=== PATIENT | male | born 1935 | race Caucasian/White ===

== ENCOUNTER 2016-11-27 08:18 | Inpatient (IN) | payer OTHER ==
--- NOTE | 2016-11-27 08:53 | PDOC ---
History of Present Illness - General History Source: Patient, Old Records Exam Limitations: No Limitations - History of Present Illness Initial Comments: 11/27/16 09:03 The patient is an 81-year-old man, from home, with a significant past medical history of hypertension, hypercholesterolemia, coronary artery disease (on Coumadin), diabetes mellitus and end-stage renal disease (on hemodialysis q. M/W /F) who presents to the emergency department via walk in for further evaluation of abdominal pain for the past two weeks. No trauma, strenuous activity. Patient states that his symptoms started approximately 2 weeks ago as gassy sensations. Patient took an over the counter medication for gas relief, which helped immediately with his symptoms. Approximately 1 week later, he started to experience intermittent left sided abdominal pain. He describes his pain as a pressure sensation that shoots through his back. He notes that his pain is exacerbated when eating, bending forward and lifting his left leg. He states that his pain has remained constant since yesterday afternoon, at approximately 12:00. He denies taking any pain medications. He has never experienced similar pain in the past. Patient presets to the ED, as his symptoms have remained constant. He denies chest pain, cough, shortness of breath, headache He denies vomiting, diarrhea,changes in bowel habits, dysuria, hematuria, urinary frequency/urgency, flank pain, Allergies: Penicillin. Vancomycin. Past Surgical History: Bilateral knee arthroscopies. Spinal surgeries x4. Right arm fistula placement. Social History: Never smoked. No EtOH and recreational drug use. Primary Care Physician: Dr. Jose Kumari <Gisele Davis - Last Filed: 11/27/16 14:49> - General History Source: Patient Exam Limitations: No Limitations <Karlie Mckinney - Last Filed: 11/27/16 14:58> - General Chief Complaint: Pain Stated Complaint: LT SIDE/ABD PAIN Time Seen by Provider: 11/27/16 08:41 Past History <Gisele Davis - Last Filed: 11/27/16 14:49> - Past Medical History Anemia: No Asthma: No Cancer: No Cardiac Disorders: Yes (on coumadin) CVA: No COPD: No CHF: No Dementia: No Diabetes: Yes Dialysis: Yes (m-w-f rt arm fistula) GI Disorders: No Disorders: No HTN: Yes Hypercholesterolemia: Yes Liver Disease: No Seizures: No Thyroid Disease: No - Surgical History Abdominal Surgery: No Appendectomy: No Cardiac Surgery: No Cholecystectomy: No Lung Surgery: No Neurologic Surgery: Yes (4 SPINAL SURGERIES, bilat knee sx) Orthopedic Surgery: Yes (RAJAT KNEE ARTHROSCOPIES) - Psycho/Social/Smoking Cessation Hx Anxiety: No Suicidal Ideation: No Smoking History: Never smoked Have you smoked in the past 12 months: No Information on smoking cessation initiated: No Hx Alcohol Use: No Drug/Substance Use Hx: No Substance Use Type: None Hx Substance Use Treatment: No <Karlie Mckinney - Last Filed: 11/27/16 14:58> - Past Medical History Allergies/Adverse Reactions: Allergies Allergy/AdvReac Type Severity Reaction Status Date / Time Penicillins Allergy Verified 11/27/16 08:19 vancomycin Allergy Verified 11/27/16 08:19 Home Medications: Ambulatory Orders Furosemide [Lasix -] 80 mg PO HS 03/15/15 Atorvastatin Ca [Lipitor] 10 mg PO HS 06/01/15 Calcium Acetate 6 tab PO DAILY 11/27/16 Sevelamer Carbonate [Renvela] 800 mg PO DAILY 11/27/16 Warfarin Sodium 4.5 mg PO DAILY 11/27/16 Review of Systems - Review of Systems Able to Perform ROS?: Yes Comments:: 11/27/16 09:04 GENERAL/CONSTITUTIONAL: No: fever, chills, weakness, loss of appetite. HEAD, EYES, EARS, NOSE AND THROAT: No: change in vision, ear pain, discharge, sore throat, throat swelling. CARDIOVASCULAR: No: chest pain, lightheadedness, palpitations, syncope RESPIRATORY: No: cough, shortness of breath, wheezing, hemoptysis, stridor. GASTROINTESTINAL: Yes: Abdominal Pain. Nausea. No: vomiting, abdominal cramping , diarrhea, rectal bleeding, constipation. GENITOURINARY: No: dysuria, hematuria, frequency, urgency, flank pain. MUSCULOSKELETAL: No: back pain, neck pain, joint pain, muscle swelling or pain SKIN AND BREASTS: No: lesions, pallor, rash or easy bruising. NEUROLOGIC: No: headache, vertigo, paresthesias, weakness ENDOCRINE: No: unexplained weight gain or loss HEMATOLOGIC/LYMPHATIC: No: anemia, easy bleeding, swelling nodes <Gisele Davis - Last Filed: 11/27/16 14:49> *Physical Exam - Vital Signs Last Vital Signs Temp Pulse Resp BP Pulse Ox 98.2 F 64 18 148/81 97 11/27/16 08:19 11/27/16 08:19 11/27/16 08:19 11/27/16 08:19 11/27/16 08:19 - Physical Exam Comments: 11/27/16 09:04 GENERAL: The patient is in no acute distress. HEAD: Normal with no signs of trauma. EYES: PERRLA, EOMI, sclera anicteric, conjunctiva clear. ENT: Ears normal, nares patent, oropharynx clear without exudates. Moist mucous membranes. NECK: Normal range of motion, supple without lymphadenopathy, JVD, or masses. LUNGS: Breath sounds equal, clear to auscultation bilaterally. No wheezes, and no crackles. HEART: Sinus arrythmia with a 3/6 systolic ejection murmur best heard at the precordia. ABDOMEN: Soft, severe left lower quadrant tenderness to palpation. Hyperactive bowel sounds. No guarding, no rebound. EXTREMITIES: Normal range of motion, no edema. No clubbing or cyanosis. No erythema, or tenderness. NEUROLOGICAL: Cranial nerves II through XII grossly intact. Normal speech. No focal neurological deficits. MUSCULOSKELETAL: Back nontender to palpation, no CVA tenderness SKIN: Warm, Dry, normal turgor, no rashes or lesions noted. <Gisele Davis - Last Filed: 11/27/16 14:49> - Vital Signs Last Vital Signs Temp Pulse Resp BP Pulse Ox 98.2 F 64 18 148/81 97 11/27/16 08:19 11/27/16 08:19 11/27/16 08:19 11/27/16 08:19 11/27/16 08:19 <Karlie Mckinney - Last Filed: 11/27/16 14:58> ED Treatment Course - LABORATORY CBC & Chemistry Diagram: 11/27/16 09:10 11/27/16 09:10 - RADIOLOGY Radiograph Interpretation: 11/27/16 13:04 EXAM: CT/ABDOMEN PELVIS CT W/O CONTR HISTORY PROVIDED Interpreted by Dr. Mario Alberto Prince IMPRESSION: Sequential axial images were obtained from the domes of the diaphragm through the symphysis pubis following the administration of oral contrast material. The lung bases are clear. There is marked thickening and irregularity of the proximal sigmoid colon with inflammatory changes in the adjacent mesenteric fat. This is consistent with acute diverticulitis. The colon has a bulky appearance in this location and the possibility of a developing abscess should be considered. Clinical correlation and follow-up is recommended. Is no evidence of bowel obstruction related to this process. The liver, spleen, pancreas and adrenal glands demonstrate no significant abnormalities. The kidneys are atrophic with no evidence of hydronephrosis or acute pathology. There is no evidence of intra-abdominal or retroperitoneal lymphadenopathy or fluid collections. There is no evidence of pneumoperitoneum, bowel obstruction or intra-abdominal abscess. Examination of the pelvis demonstrates no evidence of pelvic masses, fluid collections or lymphadenopathy. The prostate gland is enlarged measuring 4.9 x 4.1 x 4.6 cm. There is no evidence of acute bony abnormalities. The patient is S/P laminectomy and posterior fusion from L3 to S1. <Gisele Davis - Last Filed: 11/27/16 14:49> - LABORATORY CBC & Chemistry Diagram: 11/27/16 09:10 11/27/16 09:10 <Karlie Mckinney - Last Filed: 11/27/16 14:58> Medical Decision Making - Medical Decision Making 11/27/16 13:[address] Green 11/27/16 14:[address] Green. States that Hospitalist is covering for her until tomorrow. 11/27/16 14:49 MicroBlogged Hospitalist <Gisele Davis - Last Filed: 11/27/16 14:49> - Medical Decision Making 11/27/16 08:53 A portion of this note was documented by scribe services under my direction. I have reviewed the details of the note, within reason, and agree with the documentation with the following case summary and management plan written by me. Nursing documentation reviewed and incorporated into medical decision making This patient is an 81-year-old male with a history of end-stage renal disease on dialysis Mondays, Wednesdays, Fridays Patient presents emergency department with one day of severe LLQ pain and tenderness Symptoms actually began 1 or 2 weeks ago, initially described as gas pain Now he has crampy sharp pain rated 9/10, worse with palpation of the LLQ, flexion of the left hip DD: diverticulitis, colitis, abscess, kidney stone Will do: Labs CT abd and pelvis UA Will give Fentanyl for pain 11/27/16 10:29 Laboratory Tests 04/11/16 11/27/16 11/27/16 05:45 09:10 09:10 WBC 5.5 12.0 H D Hgb 10.7 L 12.7 D Hct 32.8 L 38.0 D Plt Count 122 L 206 D Sodium 135 L Potassium 4.3 Chloride 94 L Carbon Dioxide 27 BUN 81 H D Creatinine 8.1 H* D Random Glucose [address] of the abdomen and pelvis Will re assess 11/27/16 13:11 CT of the abdomen and pelvis: Thickening and irregularity of the proximal sigmoid colon with inflammatory changes in the adjacent mesenteric fat consistent with acute diverticulitis. The has a bulky appearance in this location and the possibility of a developing abscess should be considered. Patient written for Levaquin, and Flagyl. Call placed to Dr. Dunn who covers Dr. Kumari in the hospital 11/27/16 14:[address] Dunn She states that the Hospitalists will cover her will admit to their service 11/27/16 14:[address] Spaulding Will admit to Hospitalist Pt seen in the ER by Dr. Go <Karlie Mckinney - Last Filed: 11/27/16 14:58> *DC/Admit/Observation/Transfer - Attestations Scribe Attestion: 11/27/16 09:05 Documentation prepared by Gisele Davis, acting as medical receptionist for Karlie Mckinney MD. <Gisele Davis - Last Filed: 11/27/16 14:49> - Discharge Dispostion Admit: Yes <Karlie Mckinney - Last Filed: 11/27/16 14:58> Diagnosis at time of Disposition: Diverticulitis of large intestine Qualifiers: Diverticulitis bleeding: without bleeding Diverticulitis complication: with abscess Qualified Code(s): K57.20 - Diverticulitis of large intestine with perforation and abscess without bleeding - Discharge Dispostion Condition at time of disposition: Stable - Referrals Referrals: Jose Kumari MD [Primary Care Provider] -
[2016-11-27 09:35] LABS: BASOPHIL 0.6 % (0-2.0); EOSINOPHIL 0.8 % (0-4.5); MCH 30.5 pg (25.7-33.7); MCHC 33.4 g/dl (32.0-35.9); MEAN CELL VOLUME 91.5 fl (80-96); NEUTROPHILS 84.6 % (42.8-82.8); PLATELET COUNT 206 K/MM3 (134-434); RDW 15.2 % (11.9-15.9)
[2016-11-27 09:38] LABS: ALBUMIN 3.9 g/dl (3.4-5.0); BILIRUBIN,TOTAL 0.6 mg/dL (0.2-1.0); CALCIUM 9.6 mg/dL (8.5-10.1); TOT PROT 7.2 g/dl (6.4-8.2)
[2016-11-27 09:43] LABS: COCKROFT - GAULT 13.29
[2016-11-27 09:45] LABS: CREATININE 8.1 mg/dL (0.7-1.3)
[2016-11-27] MEDS ORDERED: METRONIDAZOLE 500 MG PREMIXED 100 ML IVPB ONE ×2 (13:10→13:38)
[2016-11-27] MEDS ORDERED: LEVOFLOXACIN 500 MG IVPB 100 ML IVPB ONE ×2 (13:10→13:38)
--- NOTE | 2016-11-27 15:56 | CON.NEP ---
Consult Consult Specialty:: nephrology Reason for Consultation:: esrd - History of Present Illness Chief Complaint: abdominal pain History of Present Illness: The patient is an 81-year-old man, from home, with a significant past medical history of hypertension, hypercholesterolemia, coronary artery disease (on Coumadin), diabetes mellitus and end-stage renal disease (on hemodialysis q. M/W /F) who presents to the emergency department via walk in for further evaluation of abdominal pain for the past two weeks. Today is his regular dialysis day. he has not been eating and had nausea yesterday. Says his pain is better since he has been in the emergency dept. - History Source History Provided By: Patient, Medical Record Limitations to Obtaining History: No Limitations - Past Medical History Cardio/Vascular: Yes: Aortic Stenosis, CAD, CHF, HTN, Hyperlipdemia Renal/: Yes: Renal Failure, Hemodialysis - Past Surgical History Past Surgical History: Yes: AV Fistula/Graft - Alcohol/Substance Use Hx Alcohol Use: No - Smoking History Smoking history: Never smoked Have you smoked in the past 12 months: No - Social History Usual Living Arrangement: With Spouse ADL: Independent History of Recent Travel: No Home Medications - Allergies Allergies/Adverse Reactions: Allergies Allergy/AdvReac Type Severity Reaction Status Date / Time Penicillins Allergy Verified 11/27/16 08:19 vancomycin Allergy Verified 11/27/16 08:19 - Home Medications Home Medications: Ambulatory Orders Furosemide [Lasix -] 80 mg PO HS 03/15/15 Atorvastatin Ca [Lipitor] 10 mg PO HS 06/01/15 Calcium Acetate 6 tab PO DAILY 11/27/16 Sevelamer Carbonate [Renvela] 800 mg PO DAILY 11/27/16 Warfarin Sodium 4.5 mg PO DAILY 11/27/16 Review of Systems - Review of Systems Constitutional: reports: Loss of Appetite, Malaise. denies: Fever Eyes: reports: No Symptoms HENT: reports: No Symptoms Neck: reports: No Symptoms Cardiovascular: reports: No Symptoms Respiratory: reports: No Symptoms Gastrointestinal: reports: Abdominal Pain, Nausea. denies: Diarrhea, Vomiting, Vomiting Blood Genitourinary: reports: No Symptoms Breasts: reports: No Symptoms Reported Musculoskeletal: reports: No Symptoms Integumentary: reports: No Symptoms Neurological: reports: No Symptoms Endocrine: reports: No Symptoms Hematology/Lymphatic: reports: No Symptoms Psychiatric: reports: No Symptoms Nephrology Consult - Height Height: 5 ft 8 in - Weight Weight: 285 lb - BMI Body Mass Index (BMI): 43.3 - Lab Results CBC,BMP: CBC, BMP 11/27/16 09:10 11/27/16 09:10 Anion Gap: Anion Gap Anion Gap 14 (8-16) 11/27/16 09:10 - Imaging Cat Scan: Report Reviewed - Physical Examination Vital Signs: Vital Signs Temperature 98.1 F 11/27/16 13:04 Pulse Rate 60 11/27/16 13:04 Respiratory Rate 14 11/27/16 13:04 Blood Pressure 110/67 11/27/16 13:04 O2 Sat by Pulse Oximetry (%) 98 11/27/16 15:36 Constitutional: Yes: Well Nourished, No Distress, Calm Eyes: Yes: Conjunctiva Clear, EOM Intact HENT: Yes: Atraumatic, Normocephalic Neck: Yes: Supple, Trachea Midline Cardiovascular: Yes: Regular Rate and Rhythm Respiratory: Yes: Regular, CTA Bilaterally Gastrointestinal: Yes: Normal Bowel Sounds, Soft Renal/: Yes: WNL Access for Hemodialysis: AV Graft Musculoskeletal: Yes: WNL Extremities: Yes: WNL Edema: No Integumentary: Yes: WNL Wound/Incision: Yes: Clean/Dry, Well Approximated Neurological: Yes: Alert, Oriented Psychiatric: Yes: Alert, Oriented Assessment/Plan IMPRESSION esrd htn diverticulitis previous h/o bacteremia PLAN he has no acute indication for HD will dialyze in am agree with antibiotics GI and surgical evaluation allergies noted MV
--- NOTE | 2016-11-27 16:37 | HP ---
CHIEF COMPLAINT: Stomach pain PCP: Dr. Jose Garcia HISTORY OF PRESENT ILLNESS: Patient is an 81 year old male with a PMHx of HTN, HLD, CAD, DMII, ESRD on Hemodialysis (M/W/F) who presented to for evaluation of severe abdominal pain. Patient reports two weeks ago he started experiencing abdominal bloating and gas , especially when eating. Then two days ago the patient ate lettuce, tomato and a small piece of fish and experienced excruciating left lower quadrant abdominal pain that is throbbing in nature with a severity of 10/10. The pain was exacerbated by food with no relief. Patient then reports last night the pain worsened, which prompted this hospital visit. He reports never having this type of pain before or was ever hospitalized for this type of pain. Patient also reports the abdominal pain is now radiating to his back causing him to have a pressure like pain to his lower back and bilateral legs, which remained constant since then. Patient otherwise denies fever, chills, nausea, vomiting, chest pain, palpitations, shortness of breath, dysuria, hematuria, urinary frequency, diarrhea, constipation. ER course was notable for: (1) CT abdo revealed acute diverticulitis with forming abscess (2)Levaquin and Flagyl given (3) Recent Travel: Denies PAST MEDICAL HISTORY: HTN, HLD, DMII, Chronic diastolic heart failure, CAD on Coumadin, ESRD on dialysis PAST SURGICAL HISTORY: Right forearm AV fistula, Bilateral knee arthroscopies, Cervical and lumbar spine surgeries Social History: Smoking:Denies Alcohol: Denies Drugs: Denies Family History: Non-contributory Allergies Penicillins Allergy (Verified 11/27/16 08:19) vancomycin Allergy (Verified 11/27/16 08:19) HOME MEDICATIONS: Home Medications Medication Instructions Recorded Furosemide [Lasix -] 80 mg PO HS 03/15/15 Atorvastatin Ca [Lipitor] 10 mg PO HS 06/01/15 Calcium Acetate 6 tab PO DAILY 11/27/16 Sevelamer Carbonate [Renvela] 800 mg PO DAILY 11/27/16 Warfarin Sodium 4.5 mg PO DAILY 11/27/16 REVIEW OF SYSTEMS CONSTITUTIONAL: Absent: fever, chills, diaphoresis, generalized weakness, malaise, loss of appetite, weight change HEENT: Absent: rhinorrhea, nasal congestion, throat pain, throat swelling, difficulty swallowing, mouth swelling, ear pain, eye pain, visual changes CARDIOVASCULAR: Absent: chest pain, syncope, palpitations, irregular heart rate, lightheadedness , peripheral edema RESPIRATORY: Absent: cough, shortness of breath, dyspnea with exertion, orthopnea, wheezing, stridor, hemoptysis GASTROINTESTINAL: Abdominal pain, abdominal distension Absent: nausea, vomiting, diarrhea, constipation, melena, hematochezia GENITOURINARY: Absent: dysuria, frequency, urgency, hesitancy, hematuria, flank pain, genital pain MUSCULOSKELETAL: Absent: myalgia, arthralgia, joint swelling, back pain, neck pain SKIN: Absent: rash, itching, pallor HEMATOLOGIC/IMMUNOLOGIC: Absent: easy bleeding, easy bruising, lymphadenopathy, frequent infections ENDOCRINE: Absent: unexplained weight gain, unexplained weight loss, heat intolerance, cold intolerance NEUROLOGIC: Absent: headache, focal weakness or paresthesias, dizziness, unsteady gait, seizure, mental status changes, bladder or bowel incontinence PSYCHIATRIC: Absent: anxiety, depression, suicidal or homicidal ideation, hallucinations. PHYSICAL EXAMINATION Vital Signs - 24 hr 11/27/16 15:36 O2 Sat by Pulse 98 Oximetry (%) GENERAL: Awake, alert, and fully oriented, in no acute distress. HEAD: Normal with no signs of trauma. EYES: Sclera anicteric, conjunctiva clear. EARS, NOSE, THROAT: Oropharynx clear without exudates. Moist mucous membranes. NECK: Normal range of motion, supple without lymphadenopathy, JVD, or masses. LUNGS: Breath sounds equal, clear to auscultation bilaterally. No wheezes, and no crackles. No accessory muscle use. HEART: Regular Rate and Rhythm, 3/6 systolic murmur ABDOMEN: Soft, Obese, moderate left lower quadrant tenderness upon palpation. No rebound tenderness. MUSCULOSKELETAL: Normal range of motion at all joints. No bony deformities or tenderness. No CVA tenderness. UPPER EXTREMITIES: Right arm fistula. No peripheral edema. LOWER EXTREMITIES: No peripheral edema. NEUROLOGICAL: Normal speech. Normal gait. Laboratory Results - last 24 hr 11/27/16 11/27/16 09:10 09:10 WBC 12.0 H D RBC 4.16 Hgb 12.7 D Hct 38.0 D MCV 91.5 MCHC 33.4 RDW 15.2 Plt Count 206 D MPV 8.0 Neutrophils % 84.6 H Lymphocytes % 9.4 D Monocytes % 4.6 Eosinophils % 0.8 Basophils % 0.6 Sodium 135 L Potassium 4.3 Chloride 94 L Carbon Dioxide 27 Anion Gap 14 BUN 81 H D Creatinine 8.1 H* D Creat Clearance w eGFR 6.43 Random Glucose 118 H D Calcium 9.6 D Total Bilirubin 0.6 AST 13 L D ALT 19 Alkaline Phosphatase 118 H D Total Protein 7.2 D Albumin 3.[address] ABDOMEN PELVIS (11/27/16): There is marked thickening and irregularity of the proximal sigmoid colon with inflammatory changes in the adjacent mesenteric fat. This is consistent with acute diverticulitis. The colon has a bulky appearance in this location and the possibility of a developing abscess should be considered. Clinical correlation and follow-up is recommended. Is no evidence of bowel obstruction related to this process. The liver, spleen, pancreas and adrenal glands demonstrate no significant abnormalities. The kidneys are atrophic with no evidence of hydronephrosis or acute pathology. There is no evidence of intra-abdominal or retroperitoneal lymphadenopathy or fluid collections. There is no evidence of pneumoperitoneum, bowel obstruction or intra-abdominal abscess ASSESSMENT/PLAN: Patient is an 81 year old male with a PMHx of HTN, HLD, CAD, Diastolic Heart Failure, DMII, ESRD on hemodialysis who presented for lower left abdominal pain and bloating for the last two weeks. On abdominal CT patient was found to have acute diverticulitis with possible forming abscess. Patient admitted for further monitoring and management. Acute Sigmoid Diverticulitis -Possible abscess forming -IV Levaquin 500mg -IV Flagyl 500mg Q8H -Continue Pain control as needed -Surgery Consult -NPO incase of surgery -Hold coumadin for surgery -INR ordered HTN -Lasix 80mg PO -Continue to monitor HLD -Continue Lipitor 10mg Chronic Diastolic Heart failure -In no acute exacerbation -Continue Lasix 80mg PO DMII -BGM -ISS ESRD on Hemodialysis -Continue Renvela 800mg daily -Nephrology consult appreciated -Will give hemodialysis tomorrow F/E/N -On no fluids -Electrolytes wnl -NPO after midnight Prophylaxis -Will resume Heparin once INR returns Disposition -Awaiting surgery Visit type - Emergency Visit Emergency Visit: Yes ED Registration Date: 11/27/16 Care time: The patient presented to the Emergency Department on the above date and was hospitalized for further evaluation of their emergent condition. - New Patient This patient is new to me today: Yes Date on this admission: 11/28/16 - Critical Care Critical Care patient: No
[2016-11-27 17:12] VITALS: BMI 29.9
--- NOTE | 2016-11-27 19:02 | PN ---
Teaching Attending Note Name of Resident: Jessica Laurent ATTENDING PHYSICIAN STATEMENT I saw and evaluated the patient. I reviewed the resident's note and discussed the case with the resident. I agree with the resident's findings and plan as documented. SUBJECTIVE: This is an 81-year-old man with a history of HTN, hyperlipidemia, CAD, chronic diastolic HF, type 2 DM, ESRD on HD who came to the ER with abdominal pain x 2 weeks. The pain is on the left and radiates to his back. OBJECTIVE: Vital Signs Period Temp Pulse Resp BP Sys/[place] Pulse Ox Last 24 Hr 98.1 F-98.2 F 60-69 14-18 110-148/67-81 97-99 HEART: S1 S2, RRR LUNGS: Clear ABDOMEN: Soft, non-distended, (+) LLQ tenderness, normal BS EXTREMITIES: No edema CT ABDOMEN PELVIS (11/27/16): There is marked thickening and irregularity of the proximal sigmoid colon with inflammatory changes in the adjacent mesenteric fat. This is consistent with acute diverticulitis. The colon has a bulky appearance in this location and the possibility of a developing abscess should be considered. Clinical correlation and follow-up is recommended. Is no evidence of bowel obstruction related to this process. The liver, spleen, pancreas and adrenal glands demonstrate no significant abnormalities. The kidneys are atrophic with no evidence of hydronephrosis or acute pathology. There is no evidence of intra-abdominal or retroperitoneal lymphadenopathy or fluid collections. There is no evidence of pneumoperitoneum, bowel obstruction or intra-abdominal abscess ASSESSMENT AND PLAN: This is an 81-year-old man with a history of HTN, hyperlipidemia, CAD, chronic diastolic HF, type 2 DM, ESRD on HD who presents to the ER with abdominal pain x 2 weeks. 1. Acute sigmoid diverticulitis with possible abscess - IV Levaquin, Flagyl - NPO - IV fluid - Pain control - Surgery consult 2. CAD - Stable 3. HTN - Continue Lasix 4. Hyperlipidemia - Continue Lipitor 5. Chronic diastolic heart failure - Stable - Continue Lasix 6. Type 2 DM - Fingersticks with Novolog sliding scale 7. ESRD on HD - Neprology consult for HD - Continue Renvela 8. Patient is on Coumadin - Not clear why - Check INR - Hold Coumadin in case surgery is needed - Once INR < 2.0, start heparin IV drip
[2016-11-27 21:01] LABS: INR 1.73 (0.82-1.09); PROTHROMBIN TIME (PATIENT) 19.2 SEC (9.98-11.88)
[2016-11-27] MEDS ORDERED: INSULIN (NOVOLOG) ASPART 100 UNITS/ML 10ML VIAL ONE (21:11)
[2016-11-27] MEDS: ATORVASTATIN CA 10 MG TABLET (FP) PO SCH (21:25)
[2016-11-27] MEDS: FUROSEMIDE 40 MG TABLET (FP) PO SCH (21:25)
[2016-11-27] MEDS: INSULIN SLIDING SCALE (NOVOLOG) 1 VIAL SQ SCH (21:27)
[2016-11-28] MEDS ORDERED: HEPARIN NA (PORCINE) 5,000 UNITS/ML 1ML VIAL IVPUSH PRN (00:51)
[2016-11-28] MEDS: METRONIDAZOLE 500 MG PREMIXED 100 ML IVPB SCH ×3 (01:36→17:22)
[2016-11-28] MEDS: HEPARIN - 25,000 UNIT in SODIUM CHLORIDE 495 ML IV SCH (01:45)
[2016-11-28] MEDS: INSULIN SLIDING SCALE (NOVOLOG) 1 VIAL SQ SCH ×4 (06:43→21:22)
[2016-11-28 07:27] LABS: MCH 31.3 pg (25.7-33.7); MCHC 34.3 g/dl (32.0-35.9); MEAN CELL VOLUME 91.3 fl (80-96); PLATELET COUNT 197 K/MM3 (134-434); RDW 15.1 % (11.9-15.9); WHITE BLOOD COUNT 8.4 K/mm3 (4.0-10.0)
[2016-11-28 07:47] LABS: INR 1.88 (0.82-1.09)
[2016-11-28 07:50] LABS: ACTIVATED PTT 41.9 SECONDS (26.9-34.4)
[2016-11-28 07:57] LABS: ALBUMIN 3.6 g/dl (3.4-5.0); BILIRUBIN,TOTAL 0.6 mg/dL (0.2-1.0); CALCIUM 9.6 mg/dL (8.5-10.1); TOT PROT 6.6 g/dl (6.4-8.2)
[2016-11-28 08:04] LABS: COCKROFT - GAULT 8.57
--- NOTE | 2016-11-28 08:29 | CONSULT ---
- Consultation REQUESTING PROVIDER: Dr. Wallace CONSULT REQUEST: We have been asked to surgically evaluate this patient for diverticulitis. PCP: Cathryn Us HISTORY OF PRESENT ILLNESS: 81 yo M presented to the ED complaining of LLQ abdominal pain that has been present for the past two weeks, but worsened significantly on Sunday, 2 days ago. The patient states the pain felt like gas when it first began, but after eating lettuce and tomato on Sunday morning the pain became a severe, constant, stabbing pain. The pain is currently improved with pain medication. He denies constipation, diarrhea, or blood in his stool, and states his last BM was this morning. He denies nausea, vomiting, fever, chills, and dysuria. He states this is the first time he has ever experienced anything like this. He has had a colonoscopy within recent years that he states was normal. PMHx: hypertension, hypercholesterolemia, chronic diastolic heart failure, coronary artery disease (on Coumadin), diabetes mellitus, end-stage renal disease (HD M/W/F) PSHx: Bilateral knee arthroscopies. Spinal surgeries, cervical and lumbar spinal fusions, Right arm fistula Social Hx: Denies tobacco or alcohol use Home Medications Medication Instructions Recorded Furosemide [Lasix -] 80 mg PO HS 03/15/15 Atorvastatin Ca [Lipitor] 10 mg PO HS 06/01/15 Calcium Acetate 6 tab PO DAILY 11/27/16 Sevelamer Carbonate [Renvela] 800 mg PO DAILY 11/27/16 Warfarin Sodium 4.5 mg PO DAILY 11/27/16 Allergies Allergy/AdvReac Type Severity Reaction Status Date / Time Penicillins Allergy Verified 11/27/16 08:19 vancomycin Allergy Verified 11/27/16 08:19 REVIEW OF SYSTEMS: CONSTITUTIONAL: Absent: fever, chills, diaphoresis, generalized weakness, weight change CARDIOVASCULAR: Absent: chest pain, palpitations, lightheadedness RESPIRATORY: Absent: cough, shortness of breath GASTROINTESTINAL: Present: abdominal pain Absent: nausea, vomiting, diarrhea, constipation, melena, hematochezia GENITOURINARY: Absent: dysuria, frequency MUSCULOSKELETAL: Absent: myalgia, arthralgia SKIN: Absent: rash, itching NEUROLOGIC: Absent: headache, dizziness PHYSICAL EXAM: GENERAL: Awake, alert, and fully oriented, in no acute distress. HEAD: Normal with no signs of trauma. EYES: PERRL, sclera anicteric, conjunctiva clear. NECK: Normal ROM, supple without lymphadenopathy, JVD, or masses. LUNGS: Clear to auscultation bilat anteriorly. No wheezes, and no crackles. No accessory muscle use. HEART: Regular rate and rhythm ABDOMEN: Soft, tender with palp LLQ, normoactive bowel sounds, no guarding, no rebound MUSCULOSKELETAL: Normal ROM at all joints. UPPER EXTREMITIES: warm, well-perfused LOWER EXTREMITIES: warm, well-perfused NEUROLOGICAL: Normal speech, gait not observed. PSYCH: Cooperative. Good eye contact. Appropriate mood and affect. SKIN: Warm, dry Vital Signs Temperature 98.2 F 11/28/16 05:49 Pulse Rate 67 11/28/16 05:49 Respiratory Rate 18 11/28/16 05:49 Blood Pressure 135/73 11/28/16 05:49 O2 Sat by Pulse Oximetry (%) 98 11/27/16 21:00 Lab Results WBC 8.4 K/mm3 (4.0-10.0) 11/28/16 07:00 RBC 3.85 M/mm3 (4.00-5.60) L 11/28/16 07:00 Hgb 12.1 GM/dL (11.7-16.9) 11/28/16 07:00 Hct 35.2 % (35.4-49) L 11/28/16 07:00 MCV 91.3 fl (80-96) 11/28/16 07:00 MCHC 34.3 g/dl (32.0-35.9) 11/28/16 07:00 RDW 15.1 % (11.9-15.9) 11/28/16 07:00 Plt Count 197 K/MM3 (134-434) 11/28/16 07:00 Sodium 134 mmol/L (136-145) L 11/28/16 07:00 Potassium 4.7 mmol/L (3.5-5.1) 11/28/16 07:00 Chloride 93 mmol/L (98-107) L 11/28/16 07:00 Carbon Dioxide 25 mmol/L (21-32) 11/28/16 07:00 Anion Gap 16 (8-16) 11/28/16 07:00 BUN 91 mg/dL (7-18) H 11/28/16 07:00 Creatinine 8.1 mg/dL (0.7-1.3) H* D 11/27/16 09:10 Random Glucose 79 mg/dL (74-106) D 11/28/16 07:00 Calcium 9.6 mg/dL (8.5-10.1) 11/28/16 07:00 INR 1.88 (0.82-1.09) H 11/28/16 07:00 CT ABDOMEN PELVIS (11/27/16): Report reviewed, discussed with Dr. Wallace. There is marked thickening and irregularity of the proximal sigmoid colon with inflammatory changes in the adjacent mesenteric fat. This is consistent with acute diverticulitis. The colon has a bulky appearance in this location and the possibility of a developing abscess should be considered. Clinical correlation and follow-up is recommended. Is no evidence of bowel obstruction related to this process. The liver, spleen, pancreas and adrenal glands demonstrate no significant abnormalities. The kidneys are atrophic with no evidence of hydronephrosis or acute pathology. There is no evidence of intra-abdominal or retroperitoneal lymphadenopathy or fluid collections. There is no evidence of pneumoperitoneum, bowel obstruction or intra-abdominal abscess Problem List - Problems (1) Diverticulitis large intestine Assessment/Plan: Pain improved, controlled, WBC WNL, afebrile Continue current tx, Continue NPO, continue abx, patient on Levaquin and Flagyl MOnitor WBC, temp Pain control Patient discussed with Dr. Wallace Code(s): K57.32 - DVTRCLI OF LG INT W/O PERFORATION OR ABSCESS W/O BLEEDING Qualifiers: Diverticulitis bleeding: without bleeding Diverticulitis complication: with abscess Qualified Code(s): K57.20 - Diverticulitis of large intestine with perforation and abscess without bleeding Visit type - Case Type Case Type: ED Admission - Emergency Emergency Visit: Yes ED Registration Date: 11/27/16 Care time: The patient presented to the Emergency Department on the above date and was hospitalized for further evaluation of their emergent condition. - New patient This patient is new to me today: Yes Date on this admission: 11/28/16 - Critical Care Critical Care patient: No
[2016-11-28 08:34] LABS: CREATININE 8.7 mg/dL (0.7-1.3)
[2016-11-28] MEDS: HEPARIN NA (PORCINE) 5,000 UNITS/ML 1ML VIAL IVPUSH PRN ×2 (09:17→17:23)
[2016-11-28] MEDS ORDERED: CALCIUM ACETATE PO SCH (10:00)
[2016-11-28] MEDS ORDERED: SEVELAMER CARBONATE 800 MG TAB (FP) PO SCH (10:00)
--- NOTE | 2016-11-28 12:08 | PN ---
Progress Note (short form) - Note Progress Note: Attending Surgeon Patient seen and evaluated; chart reviewed; concur w/ a/p as outlined by FRANCHESCA Wallace MD FACS
--- NOTE | 2016-11-28 13:47 | PN ---
Progress Note, Physician History of Present Illness: Pt seen and examined at bedside. He is awake and alert. He is refusing to go to HD today. - Current Medication List Current Medications: Active Medications Atorvastatin Calcium (Lipitor -) 10 mg PO HS HARDIK Last Admin: 11/27/16 21:25 Dose: 10 mg Furosemide (Lasix -) 80 mg PO HS HARDIK Last Admin: 11/27/16 21:25 Dose: 80 mg Heparin Sodium (Porcine) (Heparin -) 1,000 unit IVPUSH PRN PRN PRN Reason: Heparin Last Admin: 11/28/16 09:17 Dose: 1,000 unit Heparin Sodium (Porcine) (Heparin -) 5,000 unit IVPUSH PRN PRN PRN Reason: Heparin Metronidazole (Flagyl 500mg Premixed Ivpb -) 100 mls @ 100 mls/hr IVPB Q8H-IV HARDIK Last Admin: 11/28/16 09:18 Dose: 100 mls/hr Levofloxacin (Levaquin 250 Mg Premixed Ivpb -) 50 mls @ 50 mls/hr IVPB Q48H HARDIK Heparin Sodium (Porcine) 25, (000 unit/ Sodium Chloride) 500 mls @ 20 mls/hr IV TITR HARDIK; 1,000 UNIT/HR PRN Reason: Protocol Last Titration: 11/28/16 09:09 Dose: 1,100 unit/hr Insulin Aspart (Novolog Vial Sliding Scale -) 1 vial SQ ACHS HARDIK PRN Reason: Protocol Last Admin: 11/28/16 12:23 Dose: Not Given Non-Formulary Medication (Calcium Acetate [Calcium Acetate]) 6 tab PO DAILY HARDIK Sevelamer Carbonate (Renvela -) 800 mg PO DAILY HARDIK Last Admin: 11/28/16 09:18 Dose: Not Given - Objective Vital Signs: Vital Signs Temperature 97.8 F 11/28/16 08:56 Pulse Rate 78 11/28/16 08:56 Respiratory Rate 18 11/28/16 08:56 Blood Pressure 147/80 11/28/16 08:56 O2 Sat by Pulse Oximetry (%) 98 11/27/16 21:00 Constitutional: Yes: Calm Eyes: Yes: Conjunctiva Clear HENT: Yes: Atraumatic Neck: Yes: Supple Cardiovascular: Yes: S1, S2 Respiratory: Yes: CTA Bilaterally Gastrointestinal: Yes: Soft, Tenderness Genitourinary: Yes: WNL Musculoskeletal: Yes: WNL Extremities: Yes: Other (right arm fistula and graft) Edema: No Neurological: Yes: Oriented Psychiatric: Yes: Oriented Labs: CBC, BMP 11/28/16 07:00 11/28/16 07:00 INR, PTT INR 1.88 (0.82-1.09) H 11/28/16 07:00 Problem List - Problems (1) CAD (coronary artery disease) Code(s): I25.10 - ATHSCL HEART DISEASE OF [place] CORONARY ARTERY W/O ANG PCTRS (2) ESRD (end stage renal disease) on dialysis Code(s): N18.6 - END STAGE RENAL DISEASE Z99.2 - DEPENDENCE ON RENAL DIALYSIS (3) Hypertension Code(s): I10 - ESSENTIAL (PRIMARY) HYPERTENSION (4) Type 2 diabetes mellitus Code(s): E11.9 - TYPE 2 DIABETES MELLITUS WITHOUT COMPLICATIONS Assessment/Plan Current Medications Generic Name Dose Route Start Last Admin Trade Name Freq PRN Reason Stop Dose Admin Atorvastatin Calcium 10 mg 11/27/16 22:00 11/27/16 21:25 Lipitor - PO 10 mg HS HARDIK Administration Furosemide 80 mg 11/27/16 22:00 11/27/16 21:25 Lasix - PO 80 mg HS HARDIK Administration Heparin Sodium (Porcine) 1,000 unit 11/28/16 00:51 11/28/16 09:17 Heparin - IVPUSH 1,000 unit PRN PRN Administration Heparin Heparin Sodium (Porcine) 5,000 unit 11/28/16 00:51 Heparin - IVPUSH PRN PRN Heparin Metronidazole 100 mls @ 100 mls/hr 11/28/16 02:00 11/28/16 09:18 Flagyl 500mg Premixed Ivpb - IVPB 100 mls/hr Q8H-IV HARDIK Administration Levofloxacin 50 mls @ 50 mls/hr 11/29/16 10:00 Levaquin 250 Mg Premixed Ivpb - IVPB Q48H HARDIK Heparin Sodium (Porcine) 25, 500 mls @ 20 mls/hr 11/28/16 01:00 11/28/16 09:09 000 unit/ Sodium Chloride IV 1,100 unit/hr TITR HARDIK Titration Protocol 1,000 UNIT/HR Insulin Aspart 1 vial 11/27/16 22:00 11/28/16 12:23 Novolog Vial Sliding Scale - SQ Not Given ACHS HARDIK Protocol Non-Formulary Medication 6 tab 11/28/16 10:00 Calcium Acetate [Calcium Acetate] PO DAILY [facility] Sevelamer Carbonate 800 mg 11/28/16 10:00 11/28/16 09:18 Renvela - PO Not Given DAILY [facility] Impression 1. ESRD 2. HTN 3. diverticulitis 4. hyperlipidemia Plan - pt is on MWF schedule - he is refusing to go to HD today - will arrange for dialysis in am - cont current meds - cont abx - will follow Dr Zamora
--- NOTE | 2016-11-28 16:03 | PN ---
Physical Exam: SUBJECTIVE: Patient seen and examined by me at bedside. Patient reports feeling better than yesterday but still has abdominal pain. He refuses dialysis today but is set up for tomorrow. Otherwise, patient denies fever, chill, nausea, vomiting, abdominal pain, chest pain, palpitations, diarrhea. OBJECTIVE: Vital Signs Period Temp Pulse Resp BP Sys/[place] Pulse Ox Last 24 Hr 97.6 F-98.2 F 67-78 18-18 116-147/67-80 96-99 GENERAL: Awake, alert, and fully oriented, in no acute distress. LUNGS: Breath sounds equal, clear to auscultation bilaterally. No wheezes, and no crackles. No accessory muscle use. HEART: Regular Rate and Rhythm, 3/6 systolic murmur ABDOMEN: Soft, Obese, moderate left lower quadrant tenderness upon palpation. No rebound tenderness. UPPER EXTREMITIES: Right arm fistula. No peripheral edema. LOWER EXTREMITIES: No peripheral edema. Laboratory Results - last 24 hr 11/27/16 11/27/16 11/28/16 19:50 21:27 06:41 WBC RBC Hgb Hct MCV MCHC RDW Plt Count MPV INR 1.73 H D PTT (Actin FS) Sodium Potassium Chloride Carbon Dioxide Anion Gap BUN Creatinine Creat Clearance w eGFR POC Glucometer 111 82 Random Glucose Calcium Total Bilirubin AST ALT Alkaline Phosphatase Total Protein Albumin 11/28/16 11/28/16 11/28/16 07:00 07:00 07:00 WBC 8.4 RBC 3.85 L Hgb 12.1 Hct 35.2 L MCV 91.3 MCHC 34.3 RDW 15.1 Plt Count 197 MPV 8.0 INR 1.88 H PTT (Actin FS) 41.9 H Sodium 134 L Potassium 4.7 Chloride 93 L Carbon Dioxide 25 Anion Gap 16 BUN 91 H Creatinine 8.7 H* Creat Clearance w eGFR 5.92 POC Glucometer Random Glucose 79 D Calcium 9.6 Total Bilirubin 0.6 AST 13 L ALT 15 D Alkaline Phosphatase 100 Total Protein 6.6 Albumin 3.6 11/28/16 12:20 WBC RBC Hgb Hct MCV MCHC RDW Plt Count MPV INR PTT (Actin FS) Sodium Potassium Chloride Carbon Dioxide Anion Gap BUN Creatinine Creat Clearance w eGFR POC Glucometer 92 Random Glucose Calcium Total Bilirubin AST ALT Alkaline Phosphatase Total Protein Albumin Active Medications Generic Name Dose Route Start Last Admin Trade Name Freq PRN Reason Stop Dose Admin Atorvastatin Calcium 10 mg 11/27/16 22:00 11/27/16 21:25 Lipitor - PO 10 mg HS HARDIK Administration Furosemide 80 mg 11/27/16 22:00 11/27/16 21:25 Lasix - PO 80 mg HS HARDIK Administration Heparin Sodium (Porcine) 1,000 unit 11/28/16 00:51 11/28/16 09:17 Heparin - IVPUSH 1,000 unit PRN PRN Administration Heparin Heparin Sodium (Porcine) 5,000 unit 11/28/16 00:51 Heparin - IVPUSH PRN PRN Heparin Metronidazole 100 mls @ 100 mls/hr 11/28/16 02:00 11/28/16 09:18 Flagyl 500mg Premixed Ivpb - IVPB 100 mls/hr Q8H-IV HARDIK Administration Levofloxacin 50 mls @ 50 mls/hr 11/29/16 10:00 Levaquin 250 Mg Premixed Ivpb - IVPB Q48H HARDIK Heparin Sodium (Porcine) 25, 500 mls @ 20 mls/hr 11/28/16 01:00 11/28/16 09:09 000 unit/ Sodium Chloride IV 1,100 unit/hr TITR [facility] Titration Protocol 1,000 UNIT/HR Insulin Aspart 1 vial 11/27/16 22:00 11/28/16 12:23 Novolog Vial Sliding Scale - SQ Not Given ACHS [facility] Protocol Non-Formulary Medication 6 tab 11/28/16 10:00 Calcium Acetate [Calcium Acetate] PO DAILY [facility] Sevelamer Carbonate 800 mg 11/28/16 17:30 Renvela - PO TIDCM [facility] Images CT ABDOMEN PELVIS (11/27/16): There is marked thickening and irregularity of the proximal sigmoid colon with inflammatory changes in the adjacent mesenteric fat. This is consistent with acute diverticulitis. The colon has a bulky appearance in this location and the possibility of a developing abscess should be considered. Clinical correlation and follow-up is recommended. Is no evidence of bowel obstruction related to this process. The liver, spleen, pancreas and adrenal glands demonstrate no significant abnormalities. The kidneys are atrophic with no evidence of hydronephrosis or acute pathology. There is no evidence of intra-abdominal or retroperitoneal lymphadenopathy or fluid collections. There is no evidence of pneumoperitoneum, bowel obstruction or intra-abdominal abscess ASSESSMENT/PLAN: Patient is an 81 year old male with a PMHx of HTN, HLD, CAD, Diastolic Heart Failure, DMII, ESRD on hemodialysis who presented for lower left abdominal pain and bloating for the last two weeks. On abdominal CT patient was found to have acute diverticulitis with possible forming abscess. Patient admitted for further monitoring and management. Acute Sigmoid Diverticulitis -Possible abscess forming -Continue IV Levaquin 500mg -Continue IV Flagyl 500mg Q8H -Continue Pain control as needed -On Heparin drip -Will start on clear liquids and stop after midnight incase surgery tomorrow HTN -Lasix 80mg PO -Continue to monitor HLD -Continue Lipitor 10mg Chronic Diastolic Heart failure -In no acute exacerbation -Continue Lasix 80mg PO DMII -BGM -ISS ESRD on Hemodialysis -Continue Renvela 800mg TID -Nephrology consult appreciated -Will give hemodialysis tomorrow, patient refused today F/E/N -On no fluids -Electrolytes wnl -Clear liquids. NPO after midnight Prophylaxis -Heparin drip for DVT Disposition -Awaiting possible surgery Visit type - Emergency Visit Emergency Visit: Yes ED Registration Date: 11/27/16 Care time: The patient presented to the Emergency Department on the above date and was hospitalized for further evaluation of their emergent condition. - New Patient This patient is new to me today: No - Critical Care Critical Care patient: No
--- NOTE | 2016-11-28 16:32 | PN ---
Teaching Attending Note Name of Resident: Jessica Laurent ATTENDING PHYSICIAN STATEMENT I saw and evaluated the patient. I reviewed the resident's note and discussed the case with the resident. I agree with the resident's findings and plan as documented. SUBJECTIVE:pain has improved with pain medications. requesting to eat as he has not eaten in 3 days. states had colonoscopy 5 years ago and negative per him. denies Cp, SOB,fever, chills, N/V/C/D OBJECTIVE: Last Vital Signs Temp Pulse Resp BP Pulse Ox 98.0 F 67 18 134/67 96 11/28/16 15:28 11/28/16 15:28 11/28/16 15:28 11/28/16 15:28 11/28/16 09:00 General NAD CV S1 S2 RRR +murmur no rub or gallop Lungs CTA B/L no wheezing/rales/rhonchi abdomen LLQ tenderness soft NT/ND +BS Extremities RUQ palpable thrill ASSESSMENT AND PLAN: 81yo M with PMH HTN, hyperlipidemia, CAD, chronic diastolic HF, type 2 DM, ESRD on HD who presents to the ER with abdominal pain x 2 weeks. 1. Acute sigmoid diverticulitis with possible abscess- clinically improved. evaluated by Surgery. medical management at present time. will advance diet to clear liquid diet, Levaquin/Flagyl day 2. will need repeat imaging in several days. d/c IVF once tolerating po. 2. hx of DVT- on coumadin. currently on hold. cont heparin ggt. will convert back to coumadin once surgery not necessary. 3. HTN- Continue Lasix 4. Hyperlipidemia- Continue Lipitor 5. Chronic diastolic heart failure- no signs of volume overload. cont lasix 6. Type 2 DM- controlled. not on home medications? confirm home list. iss 7. ESRD on HD-(MWF). did not receive HD yesterday. pt refusing today as its not his normal HD day. nephrology on board. 8. DVT ppx- hep ggt
[2016-11-28] MEDS: SEVELAMER CARBONATE 800 MG TAB (FP) PO SCH (17:22)
[2016-11-28] MEDS ORDERED: INSULIN (NOVOLOG) ASPART 100 UNITS/ML 10ML VIAL ONE (20:03)
[2016-11-28] MEDS: FUROSEMIDE 40 MG TABLET (FP) PO SCH (21:09)
[2016-11-28] MEDS: ATORVASTATIN CA 10 MG TABLET (FP) PO SCH (21:09)
[2016-11-29] MEDS: METRONIDAZOLE 500 MG PREMIXED 100 ML IVPB SCH ×4 (01:02→20:51)
[2016-11-29] MEDS: HEPARIN - 25,000 UNIT in SODIUM CHLORIDE 495 ML IV SCH (02:26)
[2016-11-29] MEDS ORDERED: MAG HYDROX/AL HYDROX/SIMETH 30 ML UNIT-DOSE CUP PO ONE (05:39)
[2016-11-29] MEDS: INSULIN SLIDING SCALE (NOVOLOG) 1 VIAL SQ SCH ×4 (05:59→21:40)
--- NOTE | 2016-11-29 06:55 | PN ---
Physical Exam: SUBJECTIVE: Patient seen and examined by me at bedside. No overnight events noted. Patient reports that every time he eats or drinks he has to use the bathroom right away. He states this has been happening for years now. However , he had Colonoscopy done 5 years ago and it was all negative. Patient reports the abdominal pain is better and is only 4/10 in severity today with adequate pain control. Otherwise, patient denies fever, chills, nausea, vomiting, shortness of breath, chest pain, palpitations, rectal bleeding, melena. OBJECTIVE: Vital Signs Period Temp Pulse Resp BP Sys/[place] Pulse Ox Last 24 Hr 97.6 F-98.6 F 64-78 18-18 134-147/67-81 96-97 GENERAL: Awake, alert, and fully oriented, in no acute distress. LUNGS: Breath sounds equal, clear to auscultation bilaterally. No wheezes, and no crackles. No accessory muscle use. HEART: Regular Rate and Rhythm, 3/6 systolic murmur ABDOMEN: Soft, Obese, moderate left lower quadrant tenderness upon deep palpation. No rebound tenderness. UPPER EXTREMITIES: Right arm fistula with palpable thrill. No peripheral edema. LOWER EXTREMITIES: No peripheral edema. Laboratory Results - last 24 hr 11/28/16 11/28/16 11/28/16 06:41 07:00 07:00 WBC 8.4 RBC 3.85 L Hgb 12.1 Hct 35.2 L MCV 91.3 MCHC 34.3 RDW 15.1 Plt Count 197 MPV 8.0 INR 1.88 H PTT (Actin FS) 41.9 H Sodium Potassium Chloride Carbon Dioxide Anion Gap BUN Creatinine Creat Clearance w eGFR POC Glucometer 82 Random Glucose Calcium Total Bilirubin AST ALT Alkaline Phosphatase Total Protein Albumin 11/28/16 11/28/16 11/28/16 07:00 12:20 15:00 WBC RBC Hgb Hct MCV MCHC RDW Plt Count MPV INR PTT (Actin FS) 44.6 H Sodium 134 L Potassium 4.7 Chloride 93 L Carbon Dioxide 25 Anion Gap 16 BUN 91 H Creatinine 8.7 H* Creat Clearance w eGFR 5.92 POC Glucometer 92 Random Glucose 79 D Calcium 9.6 Total Bilirubin 0.6 AST 13 L ALT 15 D Alkaline Phosphatase 100 Total Protein 6.6 Albumin 3.6 11/28/16 11/28/16 11/28/16 16:59 21:10 21:18 WBC RBC Hgb Hct MCV MCHC RDW Plt Count MPV INR PTT (Actin FS) 55.6 H Sodium Potassium Chloride Carbon Dioxide Anion Gap BUN Creatinine Creat Clearance w eGFR POC Glucometer 84 82 Random Glucose Calcium Total Bilirubin AST ALT Alkaline Phosphatase Total Protein Albumin 11/29/16 05:58 WBC RBC Hgb Hct MCV MCHC RDW Plt Count MPV INR PTT (Actin FS) Sodium Potassium Chloride Carbon Dioxide Anion Gap BUN Creatinine Creat Clearance w eGFR POC Glucometer 88 Random Glucose Calcium Total Bilirubin AST ALT Alkaline Phosphatase Total Protein Albumin Active Medications Generic Name Dose Route Start Last Admin Trade Name Freq PRN Reason Stop Dose Admin Atorvastatin Calcium 10 mg 11/27/16 22:00 11/28/16 21:09 Lipitor - PO 10 mg HS HARDIK Administration Furosemide 80 mg 11/27/16 22:00 11/28/16 21:09 Lasix - PO 80 mg HS HARDIK Administration Heparin Sodium (Porcine) 1,000 unit 11/28/16 00:51 11/28/16 17:23 Heparin - IVPUSH 1,000 unit PRN PRN Administration Heparin Heparin Sodium (Porcine) 5,000 unit 11/28/16 00:51 Heparin - IVPUSH PRN PRN Heparin Metronidazole 100 mls @ 100 mls/hr 11/28/16 02:00 11/29/16 01:02 Flagyl 500mg Premixed Ivpb - IVPB 100 mls/hr Q8H-IV HARDIK Administration Levofloxacin 50 mls @ 50 mls/hr 11/29/16 10:00 Levaquin 250 Mg Premixed Ivpb - IVPB Q48H HARDIK Heparin Sodium (Porcine) 25, 500 mls @ 20 mls/hr 11/28/16 01:00 11/29/16 02:26 000 unit/ Sodium Chloride IV 24 mls/hr TITR HARDIK Administration Protocol 1,000 UNIT/HR Insulin Aspart 1 vial 11/27/16 22:00 11/29/16 05:59 Novolog Vial Sliding Scale - SQ Not Given ACHS HARDIK Protocol Non-Formulary Medication 6 tab 11/28/16 10:00 Calcium Acetate [Calcium Acetate] PO DAILY HARDIK Sevelamer Carbonate 800 mg 11/28/16 17:30 11/28/16 17:22 Renvela - PO 800 mg TIDCM HARDIK Administration Images CT ABDOMEN PELVIS (11/27/16): There is marked thickening and irregularity of the proximal sigmoid colon with inflammatory changes in the adjacent mesenteric fat. This is consistent with acute diverticulitis. The colon has a bulky appearance in this location and the possibility of a developing abscess should be considered. Clinical correlation and follow-up is recommended. Is no evidence of bowel obstruction related to this process. The liver, spleen, pancreas and adrenal glands demonstrate no significant abnormalities. The kidneys are atrophic with no evidence of hydronephrosis or acute pathology. There is no evidence of intra-abdominal or retroperitoneal lymphadenopathy or fluid collections. There is no evidence of pneumoperitoneum, bowel obstruction or intra-abdominal abscess ASSESSMENT/PLAN: Patient is an 81 year old male with a PMHx of HTN, HLD, CAD, Diastolic Heart Failure, DMII, ESRD on hemodialysis who presented for lower left abdominal pain and bloating for the last two weeks. On abdominal CT patient was found to have acute diverticulitis with possible forming abscess. Patient admitted for further monitoring and management. Acute Sigmoid Diverticulitis -Possible abscess forming -Continue IV Levaquin 500mg Q48H day #3 -Continue IV Flagyl 500mg Q8H day #3 -Continue Pain control as needed -On Heparin drip -As per surgery, will continue to medically manage History of DVT's -On Coumadin 4.5mg but currently on hold for possible surger -Continue with Heparin Drip -Today's PTT 47.3. Continue to monitor HTN -Lasix 80mg PO -Continue to monitor HLD -Continue Lipitor 10mg Chronic Diastolic Heart failure -In no acute exacerbation -Continue Lasix 80mg PO DMII -BGM -ISS ESRD on Hemodialysis -Renvela 800mg on hold due to NPO -Nephrology consult appreciated -Hemodialysis today F/E/N -On no fluids -Electrolytes wnl -NPO Prophylaxis -Heparin drip for DVT Disposition -Medically treating patient. Will have him NPO for another day. Dialysis today Visit type - Emergency Visit Emergency Visit: Yes ED Registration Date: 11/27/16 Care time: The patient presented to the Emergency Department on the above date and was hospitalized for further evaluation of their emergent condition. - New Patient This patient is new to me today: No - Critical Care Critical Care patient: No
[2016-11-29] MEDS: SEVELAMER CARBONATE 800 MG TAB (FP) PO SCH ×2 (08:09→12:44)
[2016-11-29 08:10] LABS: CALCIUM 9.3 mg/dL (8.5-10.1)
[2016-11-29 08:16] LABS: COCKROFT - GAULT 7.67
--- NOTE | 2016-11-29 08:34 | PN ---
Progress Note (short form) - Note Progress Note: Attending Surgeon no c/o; still NPO VSS AF abdomen-soft; NT; o/w negative. WBC pending today; was normal yesterday. IMP:diverticulitis PLAN:Continue NPO/IVF/IVABS; will follow. Jerson Wallace MD FACS
[2016-11-29 08:40] LABS: CREATININE 9.7 mg/dL (0.7-1.3)
[2016-11-29] MEDS: HEPARIN NA (PORCINE) 5,000 UNITS/ML 1ML VIAL IVPUSH PRN (08:55)
[2016-11-29 08:58] LABS: MCH 30.9 pg (25.7-33.7); MCHC 33.8 g/dl (32.0-35.9); MEAN CELL VOLUME 91.5 fl (80-96); MEAN PLT VOLUME 8.2 fl (7.5-11.1); PLATELET COUNT 181 K/MM3 (134-434); RDW 14.9 % (11.9-15.9); WHITE BLOOD COUNT 6.2 K/mm3 (4.0-10.0)
--- NOTE | 2016-11-29 09:59 | PN ---
Teaching Attending Note Name of Resident: Jessica Laurent ATTENDING PHYSICIAN STATEMENT I saw and evaluated the patient. I reviewed the resident's note and discussed the case with the resident. I agree with the resident's findings and plan as documented. SUBJECTIVE:states pain has improved. tolerating liquid diet. denies Cp, SOB, fever, chills, N/V/C/D OBJECTIVE: Last Vital Signs Temp Pulse Resp BP Pulse Ox 97.9 F 70 18 141/81 97 11/29/16 06:00 11/29/16 06:00 11/29/16 09:00 11/29/16 06:00 11/29/16 09:00 General NAD abdomen soft NT/ND +BS Extremities RUQ palpable thrill ASSESSMENT AND PLAN: 81yo M with PMH HTN, hyperlipidemia, CAD, chronic diastolic HF, type 2 DM, ESRD on HD who presents to the ER with abdominal pain x 2 weeks. 1. Acute sigmoid diverticulitis with possible abscess- clinically improved. cont medical management. on Flagyl/Levaquin day 3. will need repeat CT scan to evaluate abscess if requires drainage. tolerating liquid diet, will d/w surgery about advantages of NPO vs liquid diet. surgery on board. will require colonoscopy 6-8 weeks. 2. hx of DVT- on coumadin. currently on hold. cont heparin ggt. will convert back to coumadin once surgery not necessary. 3. HTN- Continue Lasix 4. Hyperlipidemia- Continue Lipitor 5. Chronic diastolic heart failure- no signs of volume overload. cont lasix 6. Type 2 DM- controlled. last A1c 4.4. possible diet controlled. confirm home medications. cont iss. 7. ESRD on HD-(MWF). plan for HD today per normal schedule. nephrology on board. 8. DVT ppx- hep ggt
[2016-11-29] MEDS: LEVOFLOXACIN 250 MG IVPB 50 ML IVPB SCH (10:07)
--- NOTE | 2016-11-29 17:29 | PN ---
Progress Note, Physician History of Present Illness: Pt seen and examined at bedside. He is awake and alert. He feels that the abdominal pain is improved. - Current Medication List Current Medications: Active Medications Atorvastatin Calcium (Lipitor -) 10 mg PO HS [facility]IK Last Admin: 11/28/16 21:09 Dose: 10 mg Furosemide (Lasix -) 80 mg PO HS H[facility]IK Last Admin: 11/28/16 21:09 Dose: 80 mg Heparin Sodium (Porcine) (Heparin -) 1,000 unit IVPUSH PRN PRN PRN Reason: Heparin Last Admin: 11/29/16 08:55 Dose: 1,000 unit Heparin Sodium (Porcine) (Heparin -) 5,000 unit IVPUSH PRN PRN PRN Reason: Heparin Metronidazole (Flagyl 500mg Premixed Ivpb -) 100 mls @ 100 mls/hr IVPB Q8H-IV [facility] Last Admin: 11/29/16 10:07 Dose: 100 mls/hr Levofloxacin (Levaquin 250 Mg Premixed Ivpb -) 50 mls @ 50 mls/hr IVPB Q48H [facility] Last Admin: 11/29/16 10:07 Dose: 50 mls/hr Heparin Sodium (Porcine) 25, (000 unit/ Sodium Chloride) 500 mls @ 20 mls/hr IV TITR HARDIK; 1,000 UNIT/HR PRN Reason: Protocol Last Titration: 11/29/16 08:58 Dose: 1,300 unit/hr Insulin Aspart (Novolog Vial Sliding Scale -) 1 vial SQ ACHS [facility] PRN Reason: Protocol Last Admin: 11/29/16 16:28 Dose: Not Given Non-Formulary Medication (Calcium Acetate [Calcium Acetate]) 6 tab PO DAILY [facility] Sevelamer Carbonate (Renvela -) 800 mg PO TIDCM [facility] Last Admin: 11/29/16 12:44 Dose: Not Given - Objective Vital Signs: Vital Signs Temperature 97.4 F L 11/29/16 14:20 Pulse Rate 82 11/29/16 16:55 Respiratory Rate 18 11/29/16 16:55 Blood Pressure 129/68 11/29/16 16:55 O2 Sat by Pulse Oximetry (%) 97 11/29/16 09:00 Constitutional: Yes: Calm Eyes: Yes: Conjunctiva Clear HENT: Yes: Atraumatic Neck: Yes: Supple Cardiovascular: Yes: S1, S2 Respiratory: Yes: CTA Bilaterally Gastrointestinal: Yes: Soft, Abdomen, Obese, Tenderness Genitourinary: Yes: WNL Musculoskeletal: Yes: WNL Edema: No Edema: LLE: Trace, RLE: Trace Neurological: Yes: Oriented Psychiatric: Yes: Oriented Labs: CBC, BMP 11/29/16 06:00 11/29/16 06:00 INR, PTT INR 1.88 (0.82-1.09) H 11/28/16 07:00 Problem List - Problems (1) CAD (coronary artery disease) Code(s): I25.10 - ATHSCL HEART DISEASE OF [place] CORONARY ARTERY W/O ANG PCTRS (2) ESRD (end stage renal disease) on dialysis Code(s): N18.6 - END STAGE RENAL DISEASE Z99.2 - DEPENDENCE ON RENAL DIALYSIS (3) Hypertension Code(s): I10 - ESSENTIAL (PRIMARY) HYPERTENSION (4) Type 2 diabetes mellitus Code(s): E11.9 - TYPE 2 DIABETES MELLITUS WITHOUT COMPLICATIONS Assessment/Plan Current Medications Generic Name Dose Route Start Last Admin Trade Name Freq PRN Reason Stop Dose Admin Atorvastatin Calcium 10 mg 11/27/16 22:00 11/28/16 21:09 Lipitor - PO 10 mg HS HARDIK Administration Furosemide 80 mg 11/27/16 22:00 11/28/16 21:09 Lasix - PO 80 mg HS HARDIK Administration Heparin Sodium (Porcine) 1,000 unit 11/28/16 00:51 11/29/16 08:55 Heparin - IVPUSH 1,000 unit PRN PRN Administration Heparin Heparin Sodium (Porcine) 5,000 unit 11/28/16 00:51 Heparin - IVPUSH PRN PRN Heparin Metronidazole 100 mls @ 100 mls/hr 11/28/16 02:00 11/29/16 10:07 Flagyl 500mg Premixed Ivpb - IVPB 100 mls/hr Q8H-IV HARDIK Administration Levofloxacin 50 mls @ 50 mls/hr 11/29/16 10:00 11/29/16 10:07 Levaquin 250 Mg Premixed Ivpb - IVPB 50 mls/hr Q48H [facility]IK Administration Heparin Sodium (Porcine) 25, 500 mls @ 20 mls/hr 11/28/16 01:00 11/29/16 08:58 000 unit/ Sodium Chloride IV 1,300 unit/hr TITR HARDIK Titration Protocol 1,000 UNIT/HR Insulin Aspart 1 vial 11/27/16 22:00 11/29/16 16:28 Novolog Vial Sliding Scale - SQ Not Given ACHS [facility] Protocol Non-Formulary Medication 6 tab 11/28/16 10:00 Calcium Acetate [Calcium Acetate] PO DAILY [facility] Sevelamer Carbonate 800 mg 11/28/16 17:30 11/29/16 12:44 Renvela - PO Not Given TIDCM [facility] Impression 1. ESRD 2. HTN 3. diverticulitis 4. hyperlipidemia Plan - HD today - he agrees to go to dialysis today - cont current meds - cont abx - will follow Dr Zamora
[2016-11-29] MEDS: ATORVASTATIN CA 10 MG TABLET (FP) PO SCH (21:36)
[2016-11-29] MEDS: FUROSEMIDE 40 MG TABLET (FP) PO SCH (21:37)
[2016-11-30] MEDS ORDERED: HEPARIN INFUSION - 500 ML IVPB ONE ×2 (00:23→21:10)
[2016-11-30] MEDS: HEPARIN - 25,000 UNIT in SODIUM CHLORIDE 495 ML IV SCH ×2 (00:30→21:14)
[2016-11-30] MEDS: METRONIDAZOLE 500 MG PREMIXED 100 ML IVPB SCH ×3 (04:07→17:01)
[2016-11-30] MEDS: INSULIN SLIDING SCALE (NOVOLOG) 1 VIAL SQ SCH ×2 (06:29→11:47)
[2016-11-30 07:32] LABS: MCH 31.3 pg (25.7-33.7); MCHC 34.7 g/dl (32.0-35.9); MEAN CELL VOLUME 90.3 fl (80-96); MEAN PLT VOLUME 7.9 fl (7.5-11.1); PLATELET COUNT 188 K/MM3 (134-434); WHITE BLOOD COUNT 6.3 K/mm3 (4.0-10.0)
[2016-11-30 08:07] LABS: ALBUMIN 3.6 g/dl (3.4-5.0); BILIRUBIN,TOTAL 0.6 mg/dL (0.2-1.0); CALCIUM 8.7 mg/dL (8.5-10.1); COCKROFT - GAULT 12.85; CREATININE 5.7 mg/dL (0.7-1.3); TOT PROT 6.5 g/dl (6.4-8.2)
--- NOTE | 2016-11-30 10:36 | PN ---
Progress Note (short form) - Note Progress Note: Attending Surgeon no c/o VSS AF abdomen-no tenderness; o/w negative WBC WNL IMP: clinically improved PLAN:Repeat CT scan; may advance diet as tolerated. Jerson Wallace MD FACS
--- NOTE | 2016-11-30 11:09 | PN ---
Physical Exam: SUBJECTIVE: Patient seen and examined by me at bedside. No overnight events noted. Patient states he is feeling much better but still has gas. He had dialysis and reports no symptoms afterwards. His stomach pain completely resolved. Otherwise, patient denies fever, chills, nausea, vomiting, abdominal pain, chest pain, shortness of breath. OBJECTIVE: Vital Signs Period Temp Pulse Resp BP Sys/[place] Pulse Ox Last 24 Hr 97.4 F-98.1 F 61-96 18-20 101-149/57-97 97-98 GENERAL: Awake, alert, and fully oriented, in no acute distress. LUNGS: Breath sounds equal, clear to auscultation bilaterally. No wheezes, and no crackles. No accessory muscle use. HEART: Regular Rate and Rhythm, 3/6 systolic murmur ABDOMEN: Soft, Obese, No tenderness upon palpation of all 4 quadrants. No rebound tenderness. UPPER EXTREMITIES: Right arm fistula with palpable thrill. No peripheral edema. LOWER EXTREMITIES: No peripheral edema. Laboratory Results - last 24 hr 11/29/16 11/29/16 11/29/16 12:42 16:00 21:38 WBC RBC Hgb Hct MCV MCHC RDW Plt Count MPV PTT (Actin FS) 81.5 H D Sodium Potassium Chloride Carbon Dioxide Anion Gap BUN Creatinine Creat Clearance w eGFR POC Glucometer 103 91 Random Glucose Hemoglobin A1c % Calcium Total Bilirubin AST ALT Alkaline Phosphatase Total Protein Albumin 11/30/16 11/30/16 11/30/16 06:00 06:00 06:00 WBC 6.3 RBC 3.67 L Hgb 11.5 L Hct 33.1 L MCV 90.3 MCHC 34.7 RDW 15.0 Plt Count 188 MPV 7.9 PTT (Actin FS) 84.9 H Sodium Potassium Chloride Carbon Dioxide Anion Gap BUN Creatinine Creat Clearance w eGFR POC Glucometer Random Glucose Hemoglobin A1c % 5.7 D Calcium Total Bilirubin AST ALT Alkaline Phosphatase Total Protein Albumin 11/30/16 11/30/16 06:00 06:26 WBC RBC Hgb Hct MCV MCHC RDW Plt Count MPV PTT (Actin FS) Sodium 139 Potassium 4.0 Chloride 96 L Carbon Dioxide 31 D Anion Gap 12 BUN 41 H D Creatinine 5.7 H D Creat Clearance w eGFR 9.65 POC Glucometer 94 Random Glucose 87 Hemoglobin A1c % Calcium 8.7 Total Bilirubin 0.6 AST 14 L ALT 13 Alkaline Phosphatase 97 Total Protein 6.5 Albumin 3.6 Active Medications Generic Name Dose Route Start Last Admin Trade Name Freq PRN Reason Stop Dose Admin Atorvastatin Calcium 10 mg 11/27/16 22:00 11/29/16 21:36 Lipitor - PO 10 mg HS HARDIK Administration Furosemide 80 mg 11/27/16 22:00 11/29/16 21:37 Lasix - PO 80 mg HS HARDIK Administration Heparin Sodium (Porcine) 1,000 unit 11/28/16 00:51 11/29/16 08:55 Heparin - IVPUSH 1,000 unit PRN PRN Administration Heparin Heparin Sodium (Porcine) 5,000 unit 11/28/16 00:51 Heparin - IVPUSH PRN PRN Heparin Metronidazole 100 mls @ 100 mls/hr 11/28/16 02:00 11/30/16 09:02 Flagyl 500mg Premixed Ivpb - IVPB 100 mls/hr Q8H-IV HARDIK Administration Levofloxacin 50 mls @ 50 mls/hr 11/29/16 10:00 11/29/16 10:07 Levaquin 250 Mg Premixed Ivpb - IVPB 50 mls/hr Q48H HARDIK Administration Heparin Sodium (Porcine) 25, 500 mls @ 20 mls/hr 11/28/16 01:00 11/30/16 08:30 000 unit/ Sodium Chloride IV 1,200 unit/hr TITR HARDIK Titration Protocol 1,000 UNIT/HR Insulin Aspart 1 vial 11/27/16 22:00 11/30/16 06:29 Novolog Vial Sliding Scale - SQ Not Given ACHS HARDIK Protocol Non-Formulary Medication 6 tab 11/28/16 10:00 Calcium Acetate [Calcium Acetate] PO DAILY [facility] Sevelamer Carbonate 800 mg 11/28/16 17:30 11/29/16 12:44 Renvela - PO Not Given TIDCM [facility] Images CT ABDOMEN PELVIS (11/27/16): There is marked thickening and irregularity of the proximal sigmoid colon with inflammatory changes in the adjacent mesenteric fat. This is consistent with acute diverticulitis. The colon has a bulky appearance in this location and the possibility of a developing abscess should be considered. Clinical correlation and follow-up is recommended. Is no evidence of bowel obstruction related to this process. The liver, spleen, pancreas and adrenal glands demonstrate no significant abnormalities. The kidneys are atrophic with no evidence of hydronephrosis or acute pathology. There is no evidence of intra-abdominal or retroperitoneal lymphadenopathy or fluid collections. There is no evidence of pneumoperitoneum, bowel obstruction or intra-abdominal abscess ASSESSMENT/PLAN: Patient is an 81 year old male with a PMHx of HTN, HLD, CAD, Diastolic Heart Failure, DMII, ESRD on hemodialysis who presented for lower left abdominal pain and bloating for the last two weeks. On abdominal CT patient was found to have acute diverticulitis with possible forming abscess. Patient admitted for further monitoring and management. Acute Sigmoid Diverticulitis -Possible abscess forming -Continue IV Levaquin 500mg Q48H day #4 -Continue IV Flagyl 500mg Q8H day #4 -Currently being medically treated by surgery. -Repeat CT today -Continue Pain control as needed -NPO and may advance as tolerated Constipation -Likely secondary to poor oral intake -Colace 100mg Daily ordered History of DVT's -On Coumadin 4.5mg but currently on hold for possible surgery -Continue with Heparin Drip -Today's PTT 84.9 Continue to monitor HTN -Controlled -Lasix 80mg PO -Continue to monitor HLD -Controlled -Continue Lipitor 10mg Chronic Diastolic Heart failure -In no acute exacerbation -Continue Lasix 80mg PO DMII -BGM -ISS ESRD on Hemodialysis -Hold Renvela 800mg until patient is no longer NPO -Nephrology consult appreciated -Hemodialysis done yesterday F/E/N -On no fluids -Electrolytes wnl -NPO currently. Will advance as tolerated today Prophylaxis -Heparin drip for DVT Disposition -Repeat Abdo/Pelvis CT today. Visit type - Emergency Visit Emergency Visit: Yes ED Registration Date: 11/27/16 Care time: The patient presented to the Emergency Department on the above date and was hospitalized for further evaluation of their emergent condition. - New Patient This patient is new to me today: No - Critical Care Critical Care patient: No
--- NOTE | 2016-11-30 12:57 | PN ---
Progress Note, Physician History of Present Illness: Pt seen and examined at bedside. He is awake and alert. He feels that abdominal pain is improved. - Current Medication List Current Medications: Active Medications Atorvastatin Calcium (Lipitor -) 10 mg PO HS HARDIK Last Admin: 11/29/16 21:36 Dose: 10 mg Furosemide (Lasix -) 80 mg PO HS HARDIK Last Admin: 11/29/16 21:37 Dose: 80 mg Heparin Sodium (Porcine) (Heparin -) 1,000 unit IVPUSH PRN PRN PRN Reason: Heparin Last Admin: 11/29/16 08:55 Dose: 1,000 unit Heparin Sodium (Porcine) (Heparin -) 5,000 unit IVPUSH PRN PRN PRN Reason: Heparin Metronidazole (Flagyl 500mg Premixed Ivpb -) 100 mls @ 100 mls/hr IVPB Q8H-IV HARDIK Last Admin: 11/30/16 09:02 Dose: 100 mls/hr Levofloxacin (Levaquin 250 Mg Premixed Ivpb -) 50 mls @ 50 mls/hr IVPB Q48H [facility]IK Last Admin: 11/29/16 10:07 Dose: 50 mls/hr Heparin Sodium (Porcine) 25, (000 unit/ Sodium Chloride) 500 mls @ 20 mls/hr IV TITR HARDIK; 1,000 UNIT/HR PRN Reason: Protocol Last Titration: 11/30/16 08:30 Dose: 1,200 unit/hr Insulin Aspart (Novolog Vial Sliding Scale -) 1 vial SQ ACHS HARDIK PRN Reason: Protocol Last Admin: 11/30/16 11:47 Dose: Not Given Non-Formulary Medication (Calcium Acetate [Calcium Acetate]) 6 tab PO DAILY [facility] Sevelamer Carbonate (Renvela -) 800 mg PO TIDCM [facility] Last Admin: 11/29/16 12:44 Dose: Not Given - Objective Vital Signs: Vital Signs Temperature 97.8 F 11/30/16 10:00 Pulse Rate 70 11/30/16 10:00 Respiratory Rate 20 11/30/16 10:00 Blood Pressure 120/57 11/30/16 10:00 O2 Sat by Pulse Oximetry (%) 97 11/30/16 09:06 Constitutional: Yes: Calm Eyes: Yes: Conjunctiva Clear HENT: Yes: Atraumatic Neck: Yes: Supple Cardiovascular: Yes: S1, S2 Respiratory: Yes: CTA Bilaterally Gastrointestinal: Yes: Soft Genitourinary: Yes: WNL Musculoskeletal: Yes: WNL Edema: Yes Edema: LLE: Trace, RLE: Trace Neurological: Yes: Oriented Psychiatric: Yes: Oriented Labs: CBC, BMP 11/30/16 06:00 11/30/16 06:00 INR, PTT INR 1.88 (0.82-1.09) H 11/28/16 07:00 Problem List - Problems (1) CAD (coronary artery disease) Code(s): I25.10 - ATHSCL HEART DISEASE OF [place] CORONARY ARTERY W/O ANG PCTRS (2) ESRD (end stage renal disease) on dialysis Code(s): N18.6 - END STAGE RENAL DISEASE Z99.2 - DEPENDENCE ON RENAL DIALYSIS (3) Hypertension Code(s): I10 - ESSENTIAL (PRIMARY) HYPERTENSION (4) Type 2 diabetes mellitus Code(s): E11.9 - TYPE 2 DIABETES MELLITUS WITHOUT COMPLICATIONS Assessment/Plan Current Medications Generic Name Dose Route Start Last Admin Trade Name Freq PRN Reason Stop Dose Admin Atorvastatin Calcium 10 mg 11/27/16 22:00 11/29/16 21:36 Lipitor - PO 10 mg HS HARDIK Administration Furosemide 80 mg 11/27/16 22:00 11/29/16 21:37 Lasix - PO 80 mg HS HARDIK Administration Heparin Sodium (Porcine) 1,000 unit 11/28/16 00:51 11/29/16 08:55 Heparin - IVPUSH 1,000 unit PRN PRN Administration Heparin Heparin Sodium (Porcine) 5,000 unit 11/28/16 00:51 Heparin - IVPUSH PRN PRN Heparin Metronidazole 100 mls @ 100 mls/hr 11/28/16 02:00 11/30/16 09:02 Flagyl 500mg Premixed Ivpb - IVPB 100 mls/hr Q8H-IV HARDIK Administration Levofloxacin 50 mls @ 50 mls/hr 11/29/16 10:00 11/29/16 10:07 Levaquin 250 Mg Premixed Ivpb - IVPB 50 mls/hr Q48H HARDIK Administration Heparin Sodium (Porcine) 25, 500 mls @ 20 mls/hr 11/28/16 01:00 11/30/16 08:30 000 unit/ Sodium Chloride IV 1,200 unit/hr TITR HARDIK Titration Protocol 1,000 UNIT/HR Insulin Aspart 1 vial 11/27/16 22:00 11/30/16 11:47 Novolog Vial Sliding Scale - SQ Not Given ACHS HARDIK Protocol Non-Formulary Medication 6 tab 11/28/16 10:00 Calcium Acetate [Calcium Acetate] PO DAILY [facility] Sevelamer Carbonate 800 mg 11/28/16 17:30 11/29/16 12:44 Renvela - PO Not Given TIDCM [facility] Impression 1. ESRD 2. HTN 3. diverticulitis 4. hyperlipidemia Plan - will arrange for HD in am - monitor bloodwork - cont abx - cont current meds - will follow Dr Zamora
--- NOTE | 2016-11-30 13:32 | PN ---
Teaching Attending Note Name of Resident: Jessica Laurent ATTENDING PHYSICIAN STATEMENT I saw and evaluated the patient. I reviewed the resident's note and discussed the case with the resident. I agree with the resident's findings and plan as documented. SUBJECTIVE:states pain has resolved. requesting to eat. tolerated HD yesterday. denies CP, SOB,fever, chills, N/V/C/D OBJECTIVE: Last Vital Signs Temp Pulse Resp BP Pulse Ox 97.8 F 70 20 120/57 97 11/30/16 10:00 11/30/16 10:00 11/30/16 10:11/30/16 10:00 11/30/16 09:06 General NAD abdomen soft NT/ND +BS Extremities RUQ palpable thrill ASSESSMENT AND PLAN: 81yo M with PMH HTN, hyperlipidemia, CAD, chronic diastolic HF, type 2 DM, ESRD on HD who presents to the ER with abdominal pain x 2 weeks. 1. Acute sigmoid diverticulitis with possible abscess- clinically improved. repeat CT abdomen/pelvis today to assess abscess if improved. advance diet to clear liquids. on Flagyl/Levaquin day 4. surgery on board. will require colonoscopy 6-8 weeks. 2. hx of DVT- on coumadin. currently on hold. cont heparin ggt. will convert back to coumadin once surgery not necessary. 3. HTN- Continue Lasix 4. Hyperlipidemia- Continue Lipitor 5. Chronic diastolic heart failure- no signs of volume overload. cont lasix 6. Type 2 DM- A1c 5.7. will d/c ISS and BGM. 7. ESRD on HD-(MWF). Tolerated HD yesterday. cont HD per normal schedule. nephrology on board. 8. DVT ppx- hep ggt
--- NOTE | 2016-11-30 14:23 | MSN ---
Progress Note (short form) - Note Progress Note: Subjective: Seen at the bed side. Patient stated "feeling better" with only complaint of "feeling gassy" without constipation, which is unchanged from baseline. Patient stated that his lower left quadrant pain has reduced to a 1 out 10 from a previous 4 out of 10. Patient reports normal bowel movements and urination without pain. patient denies any weakness, nauseas, vomiting, diarrhea, fever, chills, or blood in his stool. Patients also denies any chest pain, shortness of breath, or dizziness. Vital Signs Period Temp Pulse Resp BP Sys/[place] Pulse Ox Last 24 Hr 97.4 F-98.1 F 61-96 18-20 101-149/57-97 97-98 General- Patient is alert, oriented, and in no distress Head- head is normocephalic without an obvious signs of deformity or trauma Eye- [place], all extracocular eye movements are intact, sclera and conjunctiva are clear and ar not compromised Neck- Trachea is midline, no JVD, no lymphadenopathy. Lungs- Lungs are clear bilaterally in all lung [place] Heart- Normal rate with systolic murmur 3/6 Abdomen- no distension, guarding, rebound, brusing or deformity. Normal bowel sounds were noted in all quadrants and no tenderness was found in all four quadrants. Psych- normal mood and affect Laboratory Results - last 24 hr 11/29/16 11/29/16 11/30/16 16:00 21:38 06:00 WBC 6.3 RBC 3.67 L Hgb 11.5 L Hct 33.1 L MCV 90.3 MCHC 34.7 RDW 15.0 Plt Count 188 MPV 7.9 PTT (Actin FS) 81.5 H D Sodium Potassium Chloride Carbon Dioxide Anion Gap BUN Creatinine Creat Clearance w eGFR POC Glucometer 91 Random Glucose Hemoglobin A1c % Calcium Total Bilirubin AST ALT Alkaline Phosphatase Total Protein Albumin 11/30/16 11/30/16 11/30/16 06:00 06:00 06:00 WBC RBC Hgb Hct MCV MCHC RDW Plt Count MPV PTT (Actin FS) 84.9 H Sodium 139 Potassium 4.0 Chloride 96 L Carbon Dioxide 31 D Anion Gap 12 BUN 41 H D Creatinine 5.7 H D Creat Clearance w eGFR 9.65 POC Glucometer Random Glucose 87 Hemoglobin A1c % 5.7 D Calcium 8.7 Total Bilirubin 0.6 AST 14 L ALT 13 Alkaline Phosphatase 97 Total Protein 6.5 Albumin 3.6 11/30/16 11/30/16 06:26 11:41 WBC RBC Hgb Hct MCV MCHC RDW Plt Count MPV PTT (Actin FS) Sodium Potassium Chloride Carbon Dioxide Anion Gap BUN Creatinine Creat Clearance w eGFR POC Glucometer 94 90 Random Glucose Hemoglobin A1c % Calcium Total Bilirubin AST ALT Alkaline Phosphatase Total Protein Albumin Assessment and Plan 81 year old male with past medical history of HTN, HLD, CAD, HF, DMII, ESRD, on hemodialysis. Presented two weeks ago with lower left quadrant pain. Acute sigmoid diverticulitis continue levaquin 500mg q48 hr. Day 4. continue flagyl 500mg q8 hr. Day 4. continue pain control continue heparin drip in contact with surgeon DVT continue to hold warfarin contue heparin drip current PTT of 84.9 Hypertension continue lasix 80mg HLD continue lipitor 10mg CHF continue Lasix 80mg ESRD ordered renvela 800mg TIB dialysis 1 day ago F/E/N Patients on liquid diet changed from previous NPO diet
[2016-11-30] MEDS: SEVELAMER CARBONATE 800 MG TAB (FP) PO SCH ×2 (16:07→17:01)
[2016-11-30] MEDS ORDERED: RANITIDINE HCL 150 MG TABLET (FP) PO ONE (17:30)
[2016-11-30] MEDS: traMADol HCL 50 MG TABLET PO PRN (21:03)
[2016-11-30] MEDS: FUROSEMIDE 40 MG TABLET (FP) PO SCH (21:05)
[2016-11-30] MEDS: ATORVASTATIN CA 10 MG TABLET (FP) PO SCH (21:05)
[2016-11-30] MEDS ORDERED: ONDANSETRON 4 MG/2 ML VIAL IVPUSH PRN (22:06)
[2016-12-01] MEDS: HEPARIN - 25,000 UNIT in SODIUM CHLORIDE 495 ML IV SCH (02:32)
[2016-12-01] MEDS: METRONIDAZOLE 500 MG PREMIXED 100 ML IVPB SCH ×3 (02:33→17:46)
[2016-12-01] MEDS: traMADol HCL 50 MG TABLET PO PRN ×2 (05:14→22:08)
[2016-12-01 07:44] LABS: MCH 31.1 pg (25.7-33.7); MEAN CELL VOLUME 91.4 fl (80-96); MEAN PLT VOLUME 8.1 fl (7.5-11.1); PLATELET COUNT 176 K/MM3 (134-434); RDW 15.4 % (11.9-15.9); WHITE BLOOD COUNT 8.9 K/mm3 (4.0-10.0)
--- NOTE | 2016-12-01 07:44 | PN ---
Physical Exam: SUBJECTIVE: Patient seen and examined by me at bedside. Overnight events noted. Patient had severe left lower abdominal pain described as sharp with a severity level of 100. The pain lasted for 2 hours and when he took the pain medication the pain resolved within 30 minutes. Patient was able to tolerate clear liquids but complains of gas. This morning, patient offers no abdominal pain and is feeling better. Otherwise, denies fever, chills, nausea, vomiting, chest pain, palpitations, shortness of breath, headache. OBJECTIVE: Vital Signs Period Temp Pulse Resp BP Sys/[place] Pulse Ox Last 24 Hr 97.6 F-97.8 F 70-89 18-20 112-127/57-80 97-98 GENERAL: Awake, alert, and fully oriented, in no acute distress. LUNGS: Breath sounds equal, clear to auscultation bilaterally. No wheezes, and no crackles. No accessory muscle use. HEART: Regular Rate and Rhythm, 3/6 systolic murmur ABDOMEN: Soft, Obese, No tenderness upon palpation of all 4 quadrants. No rebound tenderness. Normoactive bowel sounds UPPER EXTREMITIES: Right arm fistula with palpable thrill. No edema or erythema LOWER EXTREMITIES: No peripheral edema. Laboratory Results - last 24 hr 11/29/16 11/30/16 11/30/16 15:18 06:00 06:00 WBC 6.3 RBC 3.67 L Hgb 11.5 L Hct 33.1 L MCV 90.3 MCHC 34.7 RDW 15.0 Plt Count 188 MPV 7.9 PTT (Actin FS) 84.9 H Sodium Potassium Chloride Carbon Dioxide Anion Gap BUN Creatinine Creat Clearance w eGFR POC Glucometer Random Glucose Hemoglobin A1c % Calcium Total Bilirubin AST ALT Alkaline Phosphatase Total Protein Albumin Hepatitis C Antibody <0.1 11/30/16 11/30/16 11/30/16 06:00 06:00 11:41 WBC RBC Hgb Hct MCV MCHC RDW Plt Count MPV PTT (Actin FS) Sodium 139 Potassium 4.0 Chloride 96 L Carbon Dioxide 31 D Anion Gap 12 BUN 41 H D Creatinine 5.7 H D Creat Clearance w eGFR 9.65 POC Glucometer 90 Random Glucose 87 Hemoglobin A1c % 5.7 D Calcium 8.7 Total Bilirubin 0.6 AST 14 L ALT 13 Alkaline Phosphatase 97 Total Protein 6.5 Albumin 3.6 Hepatitis C Antibody 11/30/16 16:04 WBC RBC Hgb Hct MCV MCHC RDW Plt Count MPV PTT (Actin FS) Sodium Potassium Chloride Carbon Dioxide Anion Gap BUN Creatinine Creat Clearance w eGFR POC Glucometer 144 Random Glucose Hemoglobin A1c % Calcium Total Bilirubin AST ALT Alkaline Phosphatase Total Protein Albumin Hepatitis C Antibody Active Medications Generic Name Dose Route Start Last Admin Trade Name Freq PRN Reason Stop Dose Admin Atorvastatin Calcium 10 mg 11/27/16 22:00 11/30/16 21:05 Lipitor - PO 10 mg HS HARDIK Administration Furosemide 80 mg 11/27/16 22:00 11/30/16 21:05 Lasix - PO 80 mg HS HARDIK Administration Heparin Sodium (Porcine) 1,000 unit 11/28/16 00:51 11/29/16 08:55 Heparin - IVPUSH 1,000 unit PRN PRN Administration Heparin Heparin Sodium (Porcine) 5,000 unit 11/28/16 00:51 Heparin - IVPUSH PRN PRN Heparin Metronidazole 100 mls @ 100 mls/hr 11/28/16 02:00 12/01/16 02:33 Flagyl 500mg Premixed Ivpb - IVPB 100 mls/hr Q8H-IV HARDIK Administration Levofloxacin 50 mls @ 50 mls/hr 11/29/16 10:00 11/29/16 10:07 Levaquin 250 Mg Premixed Ivpb - IVPB 50 mls/hr Q48H HARDIK Administration Heparin Sodium (Porcine) 25, 500 mls @ 20 mls/hr 11/28/16 01:00 12/01/16 02:32 000 unit/ Sodium Chloride IV Not Given TITR HARDIK Protocol 1,000 UNIT/HR Non-Formulary Medication 6 tab 11/28/16 10:00 Calcium Acetate [Calcium Acetate] PO DAILY HARDIK Ondansetron HCl 4 mg 11/30/16 22:06 11/30/16 22:25 Zofran Injection IVPUSH 12/01/16 10:07 4 mg Q4H PRN Administration NAUSEA AND/OR VOMITING Sevelamer Carbonate 800 mg 11/28/16 17:30 11/30/16 17:01 Renvela - PO 800 mg TIDCM HARDIK Administration Tramadol HCl 50 mg 11/30/16 20:31 12/01/16 05:14 Ultram - PO 50 mg Q4H PRN Administration PAIN Images CT ABDOMEN PELVIS (11/27/16): There is marked thickening and irregularity of the proximal sigmoid colon with inflammatory changes in the adjacent mesenteric fat. This is consistent with acute diverticulitis. The colon has a bulky appearance in this location and the possibility of a developing abscess should be considered. Clinical correlation and follow-up is recommended. Is no evidence of bowel obstruction related to this process. The liver, spleen, pancreas and adrenal glands demonstrate no significant abnormalities. The kidneys are atrophic with no evidence of hydronephrosis or acute pathology. There is no evidence of intra-abdominal or retroperitoneal lymphadenopathy or fluid collections. There is no evidence of pneumoperitoneum, bowel obstruction or intra-abdominal abscess CT ABDO/PELVIS (11/30/16): Findings consistent with diverticulitis of the proximal sigmoid colon without discreet abscess formation. ASSESSMENT/PLAN: Patient is an 81 year old male with a PMHx of HTN, HLD, CAD, Diastolic Heart Failure, DMII, ESRD on hemodialysis who presented for lower left abdominal pain and bloating for the last two weeks. On abdominal CT patient was found to have acute diverticulitis with possible forming abscess. Patient admitted for further monitoring and management. Acute Sigmoid Diverticulitis -Possible abscess forming -Continue IV Levaquin 500mg Q48H day #5 -Continue IV Flagyl 500mg Q8H day #5 -Repeat CT revealed no forming abscess -Pain controlled with Tramadol 50mg Q4H PRN. Had severe abdominal pain last night that resolved with medication -Currently on clear liquids. Advance to solids with renal diet -Continue to medically treat, as per surgery. Constipation -Likely secondary to poor oral intake -Colace 100mg Daily ordered History of DVT's -Continue with Heparin Drip -Today's PTT 84.9 Continue to monitor HTN -Controlled -Lasix 80mg PO -Continue to monitor HLD -Controlled -Continue Lipitor 10mg Chronic Diastolic Heart failure -In no acute exacerbation -Continue Lasix 80mg PO DMII -BGM -ISS ESRD on Hemodialysis -Renvela 800mg TID with meals -Nephrology consult appreciated -Hemodialysis today F/E/N -On no fluids -Electrolytes wnl -NPO currently. Will advance as tolerated today Prophylaxis -Heparin drip for DVT -Ranitidine for GI prophylaxis Disposition -Advanced diet to solids. Will monitor if patient can tolerate Visit type - Emergency Visit Emergency Visit: Yes ED Registration Date: 05/29/17 Care time: The patient presented to the Emergency Department on the above date and was hospitalized for further evaluation of their emergent condition. - New Patient This patient is new to me today: No - Critical Care Critical Care patient: No
[2016-12-01 08:42] LABS: CALCIUM 8.9 mg/dL (8.5-10.1); COCKROFT - GAULT 10.4; CREATININE 7.1 mg/dL (0.7-1.3)
[2016-12-01] MEDS ORDERED: DOCUSATE SODIUM 100 MG CAPSULE (FP) PO SCH (10:00)
[2016-12-01 11:07] LABS: INR 2.82 (0.82-1.09); PROTHROMBIN TIME (PATIENT) 31.7 SEC (9.98-11.88)
--- NOTE | 2016-12-01 11:37 | MSN ---
Progress Note (short form) - Note Progress Note: Subjective- Patient seen at the bed side. Patient stated that over the night he has lower left quadrant pain that occurred for 2 hours. The pain was described as constant and was rated as a "100/10" on a 10/10 pain scale. Patent was given pain medication and the pain resolved and has not returned. Presently the patient is in no pain and rates his pain as a 0/10. The patient complains of gas and fecal urgency but an inability to defecate.Patient does not have any other complaints and denies chest pain, SOB, fever, chills, nauseas, vomiting, diarrhea or headache. Objective- Vital Signs Period Temp Pulse Resp BP Sys/[place] Pulse Ox Last 24 Hr 97.6 F-97.8 F 77-89 18-20 112-127/62-80 98 General: alert and oriented in no distress Lungs: clear to auscultation bilaterally and in all lung mills Heart: regular rate and rhythm 3/6 systolic murmur Abdomen: no guarding, rebounding, distention or deformity. Normoactive bowel sounds. no tenderness to palpation in all four quadrants Upper extremity: 2/4 pulses bilaterally, palpable thrill in AV fistula in right arm. No edema or swelling Lower Extremity: No edema or swelling Laboratory Results - last 24 hr 11/29/16 11/29/16 11/30/16 14:55 15:18 11:41 WBC RBC Hgb Hct MCV MCHC RDW Plt Count MPV INR PTT (Actin FS) Sodium Potassium Chloride Carbon Dioxide Anion Gap BUN Creatinine POC Glucometer 90 Random Glucose Calcium Hepatitis A Ab Total Positive Hep Bs Antigen Negative Hep Bs Antibody Non reactive Hep B Core Total Ab Negative Hepatitis C Antibody <0.1 11/30/16 12/01/16 12/01/16 16:04 06:05 06:05 WBC 8.9 D RBC 3.59 L Hgb 11.2 L Hct 32.8 L MCV 91.4 MCHC 34.0 RDW 15.4 Plt Count 176 MPV 8.1 INR PTT (Actin FS) 96.1 H Sodium Potassium Chloride Carbon Dioxide Anion Gap BUN Creatinine POC Glucometer 144 Random Glucose Calcium Hepatitis A Ab Total Hep Bs Antigen Hep Bs Antibody Hep B Core Total Ab Hepatitis C Antibody 12/01/16 12/01/16 06:05 10:50 WBC RBC Hgb Hct MCV MCHC RDW Plt Count MPV INR 2.82 H D PTT (Actin FS) Sodium 136 Potassium 3.9 Chloride 96 L Carbon Dioxide 27 Anion Gap 13 BUN 48 H Creatinine 7.1 H D POC Glucometer Random Glucose 85 Calcium 8.9 Hepatitis A Ab Total Hep Bs Antigen Hep Bs Antibody Hep B Core Total Ab Hepatitis C Antibody Current Medications Generic Name Dose Route Start Last Admin Trade Name Freq PRN Reason Stop Dose Admin Atorvastatin Calcium 10 mg 11/27/16 22:00 11/30/16 21:05 Lipitor - PO 10 mg HS HARDIK Administration Docusate Sodium 100 mg 12/01/16 10:00 Colace - PO DAILY HARDIK Furosemide 80 mg 11/27/16 22:00 11/30/16 21:05 Lasix - PO 80 mg HS HARDIK Administration Heparin Sodium (Porcine) 1,000 unit 11/28/16 00:51 11/29/16 08:55 Heparin - IVPUSH 1,000 unit PRN PRN Administration Heparin Heparin Sodium (Porcine) 5,000 unit 11/28/16 00:51 Heparin - IVPUSH PRN PRN Heparin Metronidazole 100 mls @ 100 mls/hr 11/28/16 02:00 12/01/16 02:33 Flagyl 500mg Premixed Ivpb - IVPB 100 mls/hr Q8H-IV HARDIK Administration Levofloxacin 50 mls @ 50 mls/hr 11/29/16 10:00 11/29/16 10:07 Levaquin 250 Mg Premixed Ivpb - IVPB 50 mls/hr Q48H HARDIK Administration Heparin Sodium (Porcine) 25, 500 mls @ 20 mls/hr 11/28/16 01:00 12/01/16 02:32 000 unit/ Sodium Chloride IV Not Given TITR HARDIK Protocol 1,000 UNIT/HR Sevelamer Carbonate 800 mg 11/28/16 17:30 11/30/16 17:01 Renvela - PO 800 mg TIDCM HARDIK Administration Tramadol HCl 50 mg 11/30/16 20:31 12/01/16 05:14 Ultram - PO 50 mg Q4H PRN Administration PAIN Warfarin Sodium 2.5 mg/ 4.5 mg 12/01/16 18:00 Warfarin Sodium 2 mg PO DAILY@[address] (11/27/16)- Thinking and inflammation in the proximal sigmoid colon suggestive of acute proximal sigmoid diverticulitis with the possibility of abscess. CT (11/30/16)- Findings consistent with proximal sigmoid diverticulitis without abbess formation Assessment and Plan 81 year old male with past medical history of HTN, HLD, CAD, HF, DMII, ESRD, on hemodialysis. Presented two weeks ago with lower left quadrant pain. Acute sigmoid diverticulitis Start oral levaquin Start oral flagyl continue pain control with tramadol 50 mg q4h PRN. Pain started last night for 2 hours and resolved with use of tramadol. repeat CT showed no abscess formation continuing to medically treat DVT Restarting warfarin 4.5 mg discontinuing heparin drip current PTT of 96.1 Hypertension continue lasix 80mg HLD continue lipitor 10mg Diatolic CHF No acute exacerbation continue Lasix 80mg ESRD ordered renvela 800mg TIB dialysis 1 day ago F/E/N Patients on liquid diet advancing to solids as tolerated changed from previous NPO diet Prophylaxis- warfarin for DVT Ranitidine for GI prophylaxis
--- NOTE | 2016-12-01 12:22 | PN ---
Teaching Attending Note Name of Resident: Jessica Laurent ATTENDING PHYSICIAN STATEMENT I saw and evaluated the patient. I reviewed the resident's note and discussed the case with the resident. I agree with the resident's findings and plan as documented. SUBJECTIVE:currently asymptomatic. denies CP, SOB,fever, chills, N/V/C/D OBJECTIVE: Last Vital Signs Temp Pulse Resp BP Pulse Ox 97.8 F 77 20 127/73 98 11/30/16 22:00 11/30/16 22:00 11/30/16 22:00 11/30/16 22:00 11/30/16 21:00 General NAD abdomen soft NT/ND +BS Extremities RUQ palpable thrill ASSESSMENT AND PLAN: 81yo M with PMH HTN, hyperlipidemia, CAD, chronic diastolic HF, type 2 DM, ESRD on HD who presents to the ER with abdominal pain x 2 weeks. 1. Acute sigmoid diverticulitis with possible abscess- clinically improved. repeat CT with no signs of abscess formation. tolerating regular diet. increase fiber intake. will d/c home to complete 14 day course of flagyl/levaquin (today day 5). surgery on board. will require colonoscopy 6-8 weeks. 2. hx of DVT- been on heparin ggt here and coumadin on hold for 5 days. today INR 2.8. can be effect of medication. will instruct to hold todays dose and re- start coumadin 4mg tomorrow. will need INR check on sunday. instructed importance of follow up. will place call to PMD to inform of current INR and need for check on sunday. 3. HTN- Continue Lasix 4. Hyperlipidemia- Continue Lipitor 5. Chronic diastolic heart failure- no signs of volume overload. cont lasix 6. Type 2 DM- A1c 5.7. will d/c ISS and BGM. 7. ESRD on HD-(MWF). HD for today. cont HD per normal schedule. nephrology on board. 8. DVT ppx- d/c hep ggt. INR therapeutic 9. d/c home with abx to complete 14 day course. will need colonoscopy in 6-8 weeks
--- NOTE | 2016-12-01 15:57 | PN ---
Progress Note, Physician History of Present Illness: Pt seen and examined at bedside. He is awake and alert. He feels that the abdominal pain is improved. He is due for HD today. - Current Medication List Current Medications: Active Medications Atorvastatin Calcium (Lipitor -) 10 mg PO HS [facility] Last Admin: 11/30/16 21:05 Dose: 10 mg Docusate Sodium (Colace -) 100 mg PO DAILY HARDIK Furosemide (Lasix -) 80 mg PO HS [facility] Last Admin: 11/30/16 21:05 Dose: 80 mg Metronidazole (Flagyl 500mg Premixed Ivpb -) 100 mls @ 100 mls/hr IVPB Q8H-IV [facility] Last Admin: 12/01/16 02:33 Dose: 100 mls/hr Levofloxacin (Levaquin 250 Mg Premixed Ivpb -) 50 mls @ 50 mls/hr IVPB Q48H [facility] Last Admin: 11/29/16 10:07 Dose: 50 mls/hr Sevelamer Carbonate (Renvela -) 800 mg PO TIDCM [facility] Last Admin: 11/30/16 17:01 Dose: 800 mg Tramadol HCl (Ultram -) 50 mg PO Q4H PRN PRN Reason: PAIN Last Admin: 12/01/16 05:14 Dose: 50 mg Warfarin Sodium 2.5 mg/ (Warfarin Sodium 2 mg) 4.5 mg PO DAILY@1800 HARDIK - Objective Vital Signs: Vital Signs Temperature 97.9 F 12/01/16 10:00 Pulse Rate 73 12/01/16 10:00 Respiratory Rate 20 12/01/16 10:00 Blood Pressure 117/67 12/01/16 10:00 O2 Sat by Pulse Oximetry (%) 98 11/30/16 21:00 Constitutional: Yes: Calm Eyes: Yes: Conjunctiva Clear Cardiovascular: Yes: S1, S2 Respiratory: Yes: CTA Bilaterally Gastrointestinal: Yes: Normal Bowel Sounds, Soft Genitourinary: Yes: WNL Musculoskeletal: Yes: WNL Extremities: Yes: Other (right arm graft and fistula) Edema: No Neurological: Yes: Oriented Psychiatric: Yes: Oriented Labs: CBC, BMP 12/01/16 06:05 12/01/16 06:05 INR, PTT INR 2.82 (0.82-1.09) H D 12/01/16 10:50 Problem List - Problems (1) CAD (coronary artery disease) Code(s): I25.10 - ATHSCL HEART DISEASE OF [place] CORONARY ARTERY W/O ANG PCTRS (2) ESRD (end stage renal disease) on dialysis Code(s): N18.6 - END STAGE RENAL DISEASE Z99.2 - DEPENDENCE ON RENAL DIALYSIS (3) Hypertension Code(s): I10 - ESSENTIAL (PRIMARY) HYPERTENSION (4) Type 2 diabetes mellitus Code(s): E11.9 - TYPE 2 DIABETES MELLITUS WITHOUT COMPLICATIONS Assessment/Plan Current Medications Generic Name Dose Route Start Last Admin Trade Name Freq PRN Reason Stop Dose Admin Atorvastatin Calcium 10 mg 11/27/16 22:00 11/30/16 21:05 Lipitor - PO 10 mg HS HARDIK Administration Docusate Sodium 100 mg 12/01/16 10:00 Colace - PO DAILY HARDIK Furosemide 80 mg 11/27/16 22:00 11/30/16 21:05 Lasix - PO 80 mg HS HARDIK Administration Metronidazole 100 mls @ 100 mls/hr 11/28/16 02:00 12/01/16 02:33 Flagyl 500mg Premixed Ivpb - IVPB 100 mls/hr Q8H-IV HARDIK Administration Levofloxacin 50 mls @ 50 mls/hr 11/29/16 10:00 11/29/16 10:07 Levaquin 250 Mg Premixed Ivpb - IVPB 50 mls/hr Q48H HARDIK Administration Sevelamer Carbonate 800 mg 11/28/16 17:30 11/30/16 17:01 Renvela - PO 800 mg TIDCM HARDIK Administration Tramadol HCl 50 mg 11/30/16 20:31 12/01/16 05:14 Ultram - PO 50 mg Q4H PRN Administration PAIN Warfarin Sodium 2.5 mg/ 4.5 mg 12/01/16 18:00 Warfarin Sodium 2 mg PO DAILY@1800 HARDIK Impression 1. ESRD 2. HTN 3. diverticulitis 4. hyperlipidemia Plan - pt getting HD today - had has HD scheduled as outpt next week - abdominal pain is resolved - cont abx - cont current meds - will follow Dr Zamora
[2016-12-01] MEDS: SEVELAMER CARBONATE 800 MG TAB (FP) PO SCH ×2 (17:45)
[2016-12-01] MEDS ORDERED: WARFARIN NA 2 MG TABLET (UD) PO SCH ×2 (18:00→18:53)
[2016-12-01] MEDS ORDERED: WARFARIN NA 2.5 MG, WARFARIN NA 2 MG PO SCH (18:00)
--- NOTE | 2016-12-01 18:21 | DS ---
Physical Exam: SUBJECTIVE: Patient seen and examined by me at bedside. Overnight events noted. Patient had severe left lower abdominal pain described as sharp with a severity level of 100. The pain lasted for 2 hours and when he took the pain medication the pain resolved within 30 minutes. Patient was able to tolerate clear liquids but complains of gas. This morning, patient offers no abdominal pain and is feeling better. Otherwise, denies fever, chills, nausea, vomiting, chest pain, palpitations, shortness of breath, headache. OBJECTIVE: Vital Signs Period Temp Pulse Resp BP Sys/[place] Pulse Ox Last 24 Hr 97.6 F-97.9 F 61-100 18-20 106-136/62-74 98 PHYSICAL EXAM GENERAL: Awake, alert, and fully oriented, in no acute distress. LUNGS: Breath sounds equal, clear to auscultation bilaterally. No wheezes, and no crackles. No accessory muscle use. HEART: Regular Rate and Rhythm, 3/6 systolic murmur ABDOMEN: Soft, Obese, No tenderness upon palpation of all 4 quadrants. No rebound tenderness. Normoactive bowel sounds UPPER EXTREMITIES: Right arm fistula with palpable thrill. No edema or erythema LOWER EXTREMITIES: No peripheral edema. LABS Laboratory Results - last 24 hr 11/29/16 11/29/16 12/01/16 14:55 15:18 06:05 WBC 8.9 D RBC 3.59 L Hgb 11.2 L Hct 32.8 L MCV 91.4 MCHC 34.0 RDW 15.4 Plt Count 176 MPV 8.1 INR PTT (Actin FS) Sodium Potassium Chloride Carbon Dioxide Anion Gap BUN Creatinine Random Glucose Calcium Hepatitis A Ab Total Positive Hep Bs Antigen Negative Hep Bs Antibody Non reactive Hep B Core Total Ab Negative Hepatitis C Antibody <0.1 12/01/16 12/01/16 12/01/16 06:05 06:05 10:50 WBC RBC Hgb Hct MCV MCHC RDW Plt Count MPV INR 2.82 H D PTT (Actin FS) 96.1 H Sodium 136 Potassium 3.9 Chloride 96 L Carbon Dioxide 27 Anion Gap 13 BUN 48 H Creatinine 7.1 H D Random Glucose 85 Calcium 8.9 Hepatitis A Ab Total Hep Bs Antigen Hep Bs Antibody Hep B Core Total Ab Hepatitis C Antibody CT ABDOMEN PELVIS (11/27/16): There is marked thickening and irregularity of the proximal sigmoid colon with inflammatory changes in the adjacent mesenteric fat. This is consistent with acute diverticulitis. The colon has a bulky appearance in this location and the possibility of a developing abscess should be considered. Clinical correlation and follow-up is recommended. Is no evidence of bowel obstruction related to this process. The liver, spleen, pancreas and adrenal glands demonstrate no significant abnormalities. The kidneys are atrophic with no evidence of hydronephrosis or acute pathology. There is no evidence of intra-abdominal or retroperitoneal lymphadenopathy or fluid collections. There is no evidence of pneumoperitoneum, bowel obstruction or intra-abdominal abscess CT ABDO/PELVIS (11/30/16): Findings consistent with diverticulitis of the proximal sigmoid colon without discreet abscess formation. HOSPITAL COURSE: Patient is an 81 year old male with a PMHx of HTN, HLD, CAD, DMII, ESRD on Hemodialysis (M/W/F) who presented to for evaluation of severe lower left abdominal pain that started two weeks prior to admission associated with abdominal distention and gas. CT of abdomen/Pelvis was done and he was found to have acute sigmoid diverticulitis with possible forming abscess. Patient was admitted and a surgical consult was placed. Surgery team wanted medically treated the patient with IV antibiotics before considering any procedure. Patient was placed on NPO and started on Flagyl and Levaquin. Patients abdominal pain resolved the next day after admission. Patient was observed for 72 hours on NPO and diet was advanced to Clear liquids. Patient tolerated diet without any abdominal discomfort or irritation. CT scan of abdo/pelvis was ordered yesterday, which was consistent with acute sigmoid diverticulitis but with no abscess. Patients diet advanced to Solids and tolerated it will. Patient had adequate control with Tramadol and asked for it once during his stay with moderate relief. Throughout his hospital stay, patients Coumadin was on hold and placed on due to possible surgical intervention. INR was repeated and was found to be therapeutic. Patient would not need bridging prior to discharge because of his therapeutic INR. Because of patients abdominal pain resolution and no abscess on repeat CT. Patient will be switched to PO abx for a total of two weeks and told him to resume his Warfarin dose the following day. Patient was told to follow up with his PCP after the weekend on Sunday (12/04/16) for INR check. Patients PCP was contacted and made appointment for Sunday. Patient is scheduled to have dialysis today (12/01) prior to discharge and set up dialysis for Sunday at a new center starting Sunday (12/04/16). Patient advised to increase his fiber intake to avoid the risk of repeated episodes and to follow up for a colonoscopy in 6-8 weeks. Patient verbalized understanding. Patient stable for discharge and being picked up by his to go home Date of Admission:11/27/16 Date of Discharge: 12/01/16 Minutes to complete discharge: 45 Discharge Summary Reason For Visit: DIVERTICULITIS OF LARGE INTESTINE Current Active Problems Diverticulitis large intestine (Acute) CAD (coronary artery disease) (Chronic) Chronic diastolic heart failure (Chronic) ESRD (end stage renal disease) on dialysis (Chronic) Hyperlipidemia (Chronic) Hypertension (Chronic) Type 2 diabetes mellitus (Chronic) Condition: Stable - Instructions Diet, Activity, Other Instructions: -You were admitted because of an infection in your stomach. You will be taking antibiotics for the next 9 days. Please vegetable picker your prescription from the pharmacy -You will need to start eating more fiber to help avoid the risk of more stomach infections such as this one. Information of a healthy high fiber diet is found in this discharge packet. -You will need to have a colonoscopy done in 6-8 weeks by your stomach doctor. Please make an appointment. -Start your dose of Coumadin 4mg tomorrow (12/02/16). You will need to follow up with your Primary care doctor on Sunday (12/04/16) at 9:30am to check your INR level. -You will begin dialysis at a new dialysis center on Sunday12/05/16 at 10: 45am. The place is called [facility] -You may resume your regular diet and daily activities -If you experience severe abdominal pain with no relief, return to the emergency department. Referrals: Jose Kumari MD [Primary Care Provider] - Disposition: HOME - Home Medications Comprehensive Discharge Medication List: Ambulatory Orders Furosemide [Lasix -] 80 mg PO HS 03/15/15 Atorvastatin Ca [Lipitor] 10 mg PO HS 06/01/15 Calcium Acetate 6 tab PO DAILY 11/27/16 Sevelamer Carbonate [Renvela -] 800 mg PO DAILY 11/27/16 Warfarin Sodium 4.5 mg PO DAILY 11/27/16 Levofloxacin [Levaquin -] 250 mg PO Q48H #4 tablet 12/01/16 Metronidazole [Flagyl -] 500 mg PO TID #27 tablet 12/01/16 Tramadol HCl [Ultram -] 50 mg PO Q4H PRN #3 tablet MDD 3 12/01/16 This patient is new to me today: No Emergency Visit: Yes ED Registration Date: 11/27/16 Care time: The patient presented to the Emergency Department on the above date and was hospitalized for further evaluation of their emergent condition. Critical Care patient: No - Discharge Referral Referred to [facility] No
[2016-12-01] MEDS: LEVOFLOXACIN 250 MG IVPB 50 ML IVPB SCH (20:27)
[2016-12-01] MEDS: ATORVASTATIN CA 10 MG TABLET (FP) PO SCH (22:06)
[2016-12-01] MEDS: FUROSEMIDE 40 MG TABLET (FP) PO SCH (22:06)
[2016-12-01 23:47] VITALS: BP 105/66; PULSE 86; TEMP 98.4
[2016-12-02 00:15] LABS: HEP B SURFACE AB Non Reactive (.)
== END 2016-12-01 22:30 | disposition home or self-care (01) | DRG 391 ==
LOC: JER 08:18 → JERBED 14:58 → J7W 16:45
PROVIDERS: ADMIT Internal Medicine; ATTEND Internal Medicine
PROC: 5A1D60Z (ICD-10-PCS; principal; 2016-11-29)
DX: K57.32 Diverticulitis of large intestine without perforation or abscess without bleeding (principal); N18.6 End stage renal disease; I13.2 Hypertensive heart and chronic kidney disease with heart failure and with stage 5 chronic kidney disease, or end stage renal disease; I50.32 Chronic diastolic (congestive) heart failure; E11.22 Type 2 diabetes mellitus with diabetic chronic kidney disease; E78.5 Hyperlipidemia, unspecified; I25.10 Atherosclerotic heart disease of native coronary artery without angina pectoris; N26.1 Atrophy of kidney (terminal); Z86.718 Personal history of other venous thrombosis and embolism; Z79.01 Long term (current) use of anticoagulants; Z99.2 Dependence on renal dialysis
CPT/HCPCS: 36415; 74176-TC; 80048; 80053; 83036; 85025; 85027; 85610; 85730; 86704; 86706; 86708; 86803; 87340; 99284-25; J1644; Q9967